=== PATIENT | male | born 1960 | race Caucasian/White ===

== ENCOUNTER → 2018-09-30 15:07 | Outpatient (CLI) | payer BC, SELFPAY ==
[2018-09-30 15:41] LABS: RET-HE 38.1 pg (30-35); Reticulocyte Count 1.73 % (0.5-1.5)
[2018-09-30 16:28] LABS: Anion Gap 7 (5-15); BUN 12 mg/dL (7-18); BUN/Creat Ratio 13.7 RATIO (10-20); Calcium,Total 9.2 mg/dL (8.5-10.1); Chloride 98 mmol/L (98-107); Creatinine, Serum 0.88 mg/dL (0.70-1.30); EST Glomerular Filtration Rate 95 mL/min (>60); Est Glom Filt Rate - Afr Amer 115 mL/min (>60); Ferritin 64 ng/mL (26-388); Glucose 138 mg/dL (74-106); Iron 113 ug/dL (65-175); Iron Binding Capacity,Total 340 ug/dL (250-450); Potassium 4.6 mmol/L (3.5-5.1); Sodium Level 133 mmol/L (136-145)
[2018-09-30 16:44] LABS: Vitamin B12 478 pg/mL (211-911)
== END ==
PROVIDERS: Family Provider Internal Medicine; PCP Internal Medicine; Referring Provider Internal Medicine; Visit Provider Internal Medicine
DX: D64.9 Anemia, unspecified (principal); E87.1 Hypo-osmolality and hyponatremia
CPT/HCPCS: 36415; 80048; 82607; 82728; 82746; 83540; 83550; 85045

== ENCOUNTER → 2019-09-04 12:05 | Outpatient (CLI) | payer BC, SELFPAY ==
--- NOTE | 2019-09-04 12:09 | EKG12_ITS ---
Test Reason : PREOP Blood Pressure : / mmHG Vent. Rate : 067 BPM Atrial Rate : 067 BPM P-R Int : 174 ms QRS Dur : 088 ms QT Int : 390 ms P-R-T Axes : 069 032 052 degrees QTc Int : 412 ms Normal sinus rhythm Normal ECG Confirmed by KATINA PERRY, ROSALBA ([id number]), editor book ADELA BOLDEN ([id number]) on 09/07/2019 2:09:15 PM Referred By: Verna Cadena Confirmed By:VANESA AMBRIZ MD
[2019-09-04 12:47] LABS: Hematocrit 37.3 % (40-54); Hemoglobin 12.8 g/dL (13.0-16.5); Mean Corp Hgb Conc 34.3 g/dL (32-36); Mean Corpuscular Hgb 32.2 pg (27.0-32.0); Mean Corpuscular Volume 93.7 fL (80-94); Mean Platelet Vol. 8.7 fl (6.2-12.0); Platelet Count 265 K/mm3 (150-450); RBC Distribution Width CV 12.8 % (11.6-14.6); Red Blood Count 3.98 M/mm3 (4.6-6.2); White Blood Count 5.2 K/mm3 (4.4-11.0)
[2019-09-04 13:18] LABS: Anion Gap 5 (5-15); BUN 9 mg/dL (7-18); BUN/Creat Ratio 11.9 RATIO (10-20); Calcium,Total 8.9 mg/dL (8.5-10.1); Chloride 101 mmol/L (98-107); Creatinine, Serum 0.76 mg/dL (0.70-1.30); EST Glomerular Filtration Rate 112 mL/min (>60); Est Glom Filt Rate - Afr Amer 136 mL/min (>60); Glucose 83 mg/dL (74-106); Potassium 3.8 mmol/L (3.5-5.1); Sodium Level 133 mmol/L (136-145)
== END ==
PROVIDERS: PCP Internal Medicine; Referring Provider Physician Assistant; Visit Provider Physician Assistant
DX: Z01.818 Encounter for other preprocedural examination (principal); Z01.810 Encounter for preprocedural cardiovascular examination; I10 Essential (primary) hypertension
CPT/HCPCS: 36415; 80048; 85027; 93005

== ENCOUNTER → 2019-09-30 11:23 | Outpatient (CLI) | payer BC, SELFPAY ==
[2019-09-30 13:11] LABS: Anion Gap 6 (5-15); BUN 9 mg/dL (7-18); BUN/Creat Ratio 12.3 RATIO (10-20); Calcium,Total 8.8 mg/dL (8.5-10.1); Chloride 102 mmol/L (98-107); Creatinine, Serum 0.73 mg/dL (0.70-1.30); EST Glomerular Filtration Rate 117 mL/min (>60); Est Glom Filt Rate - Afr Amer 141 mL/min (>60); Glucose 85 mg/dL (74-106); Sodium Level 134 mmol/L (136-145)
== END ==
PROVIDERS: PCP Internal Medicine; Referring Provider Physician Assistant; Visit Provider Physician Assistant
DX: I10 Essential (primary) hypertension (principal)
CPT/HCPCS: 36415; 80048

== ENCOUNTER → 2023-01-29 | Outpatient (CLI) | payer BC, SELFPAY ==
[2023-01-29 16:42] LABS: Absolute Lymphocyte Count 1.42 X10^3/uL (0.83-4.51); Absolute Neutrophil Count 3.1 X10^3/uL (2.0-7.7); Basophil# 0.02 X10^3/uL; Basophil% 0.4 % (0-1); Eosinophil# 0.14 X10^3/uL; Eosinophils% 2.6 % (0-5); Hematocrit 34.9 % (40-54); Hemoglobin 12.3 g/dL (13.0-16.5); Lymphocyte # 1.42 X10^3/ul (0.83-4.51); Lymphocyte % 26.3 % (19-41); Mean Corp Hgb Conc 35.2 g/dL (32-36); Mean Corpuscular Hgb 32.6 pg (27.0-32.0); Mean Corpuscular Volume 92.6 fL (80-94); Mean Platelet Vol. 8.7 fl (6.2-12.0); Monocyte# 0.72 X10^3/uL; Monocyte% 13.4 % (0-10); NRBC Flagged by Analyzer 0 % (0-5); Neutrophil # 3.08 X10^3/uL (2.7-7.7); Neutrophil % 57.1 % (47-70); Platelet Count 306 K/mm3 (150-450); RBC Distribution Width CV 12.1 % (11.6-14.6); RBC Distribution Width SD 41.5 fl (35.1-43.9); Red Blood Count 3.77 M/mm3 (4.6-6.2); White Blood Count 5.4 K/mm3 (4.4-11.0)
[2023-01-29 17:15] LABS: Vitamin B12 722 pg/mL (211-911); Vitamin D,25 Hydroxy 45.5 ng/mL
[2023-01-29 17:23] LABS: Hemoglobin A1c 5.2 % (3.8-5.6)
[2023-01-29 17:57] LABS: ALB/GLOB Ratio 1.4 RATIO (0.9-2.4); AST(SGOT) 14 U/L (15-37); Alanine Aminotransfer ALT/SGPT 22 U/L (16-61); Albumin, Serum 4.6 g/dL (3.2-5.0); Alkaline Phosphatase 91 U/L (45-117); Anion Gap 8 (5-15); BUN 15 mg/dL (7-18); BUN/Creat Ratio 17.8 RATIO (10-20); Calcium,Total 9.6 mg/dL (8.5-10.1); Chloride 92 mmol/L (98-107); Cholesterol 207 mg/dL (200); Creatinine, Serum 0.84 mg/dL (0.70-1.30); EST Glomerular Filtration Rate 98 mL/min (>60); Est Glom Filt Rate - Afr Amer 119 mL/min (>60); Globulin 3.2 g/dL (2.2-4.2); Glucose 106 mg/dL (74-106); High Density Lipoprotein 73 mg/dL; Iron 168 ug/dL (65-175); Iron Binding Capacity,Total 369 ug/dL (250-450); PERCENT IRON SATURATION 45.5 % (15.0-55.0); PSA,Total - Annual Screen 3.49 ng/mL (0.00-4.00); Potassium 4.1 mmol/L (3.5-5.1); Protein, Total 7.8 g/dL (6.4-8.2); Sodium Level 126 mmol/L (136-145); Thyroid Stim Hormone (TSH) 3.14 uIU/mL (0.358-3.74); Triglycerides 107 mg/dL; Very Low Density Lipoprotein 21 mg/dL (5-40)
== END | disposition home or self-care (01) ==
LOC: LAB 15:59
PROVIDERS: PCP Internal Medicine; Referring Provider Internal Medicine; Visit Provider Internal Medicine
DX: D64.9 Anemia, unspecified (principal); E78.00 Pure hypercholesterolemia, unspecified; R73.9 Hyperglycemia, unspecified; Z12.5 Encounter for screening for malignant neoplasm of prostate
CPT/HCPCS: 36415; 80053; 80061; 82306; 82607; 82746; 83036; 83540; 83550; 84153; 84443; 85025; G0103

== ENCOUNTER → 2023-03-19 | Outpatient (CLI) | payer BC, SELFPAY ==
--- NOTE | 2023-03-19 | BON_PTH ---
PATIENT: DEIDRA TRAN LOC: [facility] U#:[id number] AGE/SX: 63/M ROOM: RE03/19/[address]: Dr. Deidra Garcia DO : 1960 BED: DIS: 03/19/2023 SPEC #: [id number] RECD: 03/20/23 08:20 STATUS: KAI ENRICO #: [id number] [place]: 03/19/23 00:[address]: Deidra Garcia DEPT: SURGICAL PATHOLOGY RECD BY: Keyonna Stephens ENTERED: 03/20/23 08:22 SP TYPE: Bone OTHR DR: Dr. Don Pascual MD [facility] Tissues: A - Vertebra, NOS B - Vertebra, NOS Procedures: Decalcification bone/plaque Surgery Specimen Level V HEADER OPERATION: T5, T8 kyphoplasty PRE-OP DIAGNOSIS: Wedge compression fracture of T5-T6 and T7-T8 vertebra TISSUE SUBMITTED: A - T8 vertebral body bone, B - T5 vertebral body bone MICROSCOPIC DIAGNOSIS A. T8 vertebral body, bone biopsy: Reparative and reactive change. No evidence of malignancy. Trilineage hematopoiesis is present. B. T5 vertebral body, bone biopsy: Reparative and reactive change. No evidence of malignancy. Trilineage hematopoiesis is present. AM:kenan 03/21/2023 MICROSCOPIC DESCRIPTION Slides are reviewed. GROSS DESCRIPTION A - Received in fixative is one container labeled with the patient's name and designated vertebral body T8. The specimen consists of a cylindrical fragment of zimmerman bone measuring 1.0 cm in length and 0.1 cm in average diameter. The specimen is totally submitted in one cassette after decalcification. B - Received in fixative is one container labeled with the patient's name and designated vertebral body T5. The specimen consists of a cylindrical fragment of zimmerman bone measuring 1.0 cm in length and 0.1 cm in average diameter. The specimen is totally submitted in one cassette after decalcification. / AM:kenan 03/20/2023 TC:5 CPT: 55042 x2, 47623 x2
== END | disposition home or self-care (01) ==
LOC: LABSPEC 15:51
PROVIDERS: PCP Internal Medicine; Referring Provider Orthopaedic Surgery; Visit Provider Orthopaedic Surgery
DX: S22.050A Wedge compression fracture of T5-T6 vertebra, initial encounter for closed fracture (principal); S22.060A Wedge compression fracture of T7-T8 vertebra, initial encounter for closed fracture; X58.XXXA Exposure to other specified factors, initial encounter
CPT/HCPCS: 88305; 88307; 88311

== ENCOUNTER → 2024-11-19 | Outpatient (CLI) | payer BC, SELFPAY ==
--- NOTE | 2024-11-19 14:53 | MRI_ITS ---
PROCEDURE: PELVIS W/WO CONTRAST, 11/19/2024 REASON FOR EXAM: ELEVATED PROSTATE SPECIFIC ANTIGEN TECHNIQUE: Multisequence multiplanar MRI pelvis was performed with and without IV contrast. IV Contrast: 17 mL Clariscan COMPARISON: None FINDINGS: Variable overall mild/moderate motion limitation. Notably, axial T2 sequence which is a hart sequence is moderately motion degraded. The effect of motion artifact is magnified by the small size of the gland. Additional mild artifact on diffusion related to bowel gas, involving the posterior peripheral zone. Prostate size: 4.4 x 2.9 x 4.0 cm, estimated volume 26.5 mL. Transition zone: No clear high-risk lesion identified allowing for limitations. PI-RADS 2 findings. 1.6 cm likely extruded transition zone nodule at the level of the prostatic base protruding into the base of the seminal vesicle and bladder neck. Peripheral Zone: Background changes of likely prostatitis (PI-RADS 2). Extremely ill-defined signal extending from the RIGHT posterior peripheral zone base into the RIGHT posterolateral zone midgland and RIGHT anterior peripheral zone at the level of the apex on dynamic postcontrast imaging and diffusion, extremely difficult to delineate on motion limited small zehhp-ba-pyab T2, measuring up to roughly 1.3 cm on a single axial image (for example, axial T2 series 12 images 16, 18, and 20, however better seen on dynamic postcontrast series 13.7, images 9-15). Findings technically meet criteria for PI-RADS 4. Extracapsular extension:No definite extracapsular extension allowing for limitations, however, there is capsular abutment greater than 1 cm which increases the risk of occult early/microscopic extracapsular extension. Note that this includes the region of the RIGHT neurovascular bundle, which appears grossly unremarkable allowing for limitations. Neurovascular bundles: As above. Seminal vesicles: Extruded transition zone nodule on the LEFT as above.. Bladder: Underdistended and suboptimally evaluated. Trabeculated appearance with mild wall thickening suggesting chronic bladder outlet obstruction.. Lymph nodes: Distal LEFT external iliac node, 11 mm short axis. Distal RIGHT external iliac node, 9 mm short axis.. Bones: Heterogeneous marrow signal without destructive or convincing discrete suspicious bony lesions identified. Other: None. MRI/Pelvis W/WO Contrast IMPRESSION: 1. Somewhat limited exam as above. 2. Challenging delineation of an ill-defined lesion in the RIGHT peripheral zon e extending from the posterior base inferiorly and laterally/anteriorly into the anterior apex as described, up to 1.3 cm in great est axial dimension but likely greater in craniocaudal extent. Findings are difficult to categorize but technically felt most consistent with PI-RADS 4. 3. No definite extracapsular extension allowing for limitations, however, there is capsular abutment greater than 1 cm which increases the risk of occult early/microscopic extracapsular extension. Note th at this includes the region of the RIGHT neurovascular bundle, which appears grossly unremarkable allowing for limitatio ns. 4. Mild distal CDHW-yaznfec-pxpb-RIGHT external iliac chain lymphadenopathy by PI-RADS criteria, nonspecific in the absence of known prostatic malignancy. [facility], this would warrant close follow-up. 5. Additional description as above. Reading Location: [id number]
== END | disposition home or self-care (01) ==
LOC: OPMRI 14:49
PROVIDERS: PCP Internal Medicine; Referring Provider Urology; Visit Provider Urology
DX: R97.20 Elevated prostate specific antigen [PSA] (principal)
CPT/HCPCS: 72197; A9575; A4216

== ENCOUNTER → 2024-12-17 | Outpatient (CLI) | payer BC, SELFPAY ==
--- NOTE | 2024-12-17 08:00 | PROSBIL_PTH ---
PATIENT: DEIDRA TRAN LOC: [facility] U#:[id number] AGE/SX: 64/M ROOM: RE12/17/[address]: Dr. Gilles Johnston MD : 1960 BED: DIS: 12/17/2024 SPEC #: [id number] RECD: 12/17/24 16:26 STATUS: KAI REDaisy #: [id number] [place]: 12/17/24 08:[address]: Gilles Johnston DEPT: SURGICAL PATHOLOGY RECD BY: Russ Garcia ENTERED: 12/18/24 13:16 SP TYPE: PROST BX OT DR: Dr. Don Pascual MD Tissues: A - PROSTATE RIGHT B - PROSTATE RIGHT C - PROSTATE RIGHT D - PROSTATE LEFT E - PROSTATE LEFT F - PROSTATE LEFT Procedures: PROSTATE BX Immunohistochemical Stains HEADER OPERATION: Prostate biopsy PRE-OP DIAGNOSIS: Elevated PSA TISSUE SUBMITTED: A - Right apex, B - Right mid, C - Right base, D - Left apex, E - Left mid, F - Left base MICROSCOPIC DIAGNOSIS A. Prostate, right apex, core biopsy: - Focal adenocarcinoma [place] 3+3=6, one of two cores, < 2% of the specimen. - PIN4 IHC supports the diagnosis. B. Prostate, right mid, core biopsy: - Adenocarcinoma [place] 3+3=6, one of three cores, 25% of the specimen. C. Prostate, right base, core biopsy: - High grade PIN. - PIN4 IHC supports the diagnosis. D. Prostate, left apex, core biopsy: - High grade PIN. - PIN4 IHC supports the diagnosis. E. Prostate, left mid, core biopsy: - Focal adenocarcinoma [place] 3+3=6, one of one core, < 5% of the specimen. - PIN4 IHC supports the diagnosis. F. Prostate, left base, core biopsy: - Benign prostate tissue. MICROSCOPIC DESCRIPTION Slides are reviewed. All matched controls reacted appropriately. These tests were developed and their performance characteristics determined by [facility]. They may not have been cleared or approved by the [place]. Food and Drug Administration. The FDA has determined that such clearance or approval is not necessary.? The above immunohistochemical?markers and/or special stains have been reviewed by the Pathologist. GROSS DESCRIPTION Received in 6 formalin containers labeled with the patient's name and date of . Designated as: A. RA are 2 zimmerman tissue cores, 1.6-1.9 cm in length by 0.1 cm in diameter. Entirely submitted in 1 cassette. B. RM are 3 fragmented zimmerman tissue cores, 0.9-1.4 cm in length by 0.1 cm in diameter. Entirely submitted in 1 cassette. C. RB are 2 fragmented zimmerman tissue cores, 1.3 cm in length by 0.1 cm in diameter each. Entirely submitted in 1 cassette. D. LA is a zimmerman tissue core, 1.5 cm in length by 0.1 cm in diameter. Entirely submitted in 1 cassette. E. LM is a zimmerman tissue core, 1.7 cm in length by 0.1 cm in diameter. Entirely submitted in 1 cassette. F. LB is a zimmerman tissue core, 2.0 cm in length by 0.1 cm in diameter. Entirely submitted in 1 cassette. CO 12/18/2024 CPT:27900h3,45704q2
== END | disposition home or self-care (01) ==
LOC: LABSPEC 16:13
PROVIDERS: PCP Internal Medicine; Referring Provider Urology; Visit Provider Urology
DX: R97.20 Elevated prostate specific antigen [PSA] (principal)
CPT/HCPCS: 88305; 88342; G0416

== ENCOUNTER → 2025-04-02 | Outpatient (CLI) | payer BC, SELFPAY ==
--- NOTE | 2025-04-02 07:03 | MRI_ITS ---
PROCEDURE: SPINE THORACIC (ROUTINE) 04/02/2025 REASON FOR EXAM: PAIN, HX OF KYPHOPLASTY TECHNIQUE: Procedure Code: MRISPT Modality: MR Procedure: SPINE THORACIC (ROUTINE) Multiplanar and multisequence images were obtained. CONTRAST: None. COMPARISON: MRI thoracic spine 10/15/2023 FINDINGS: The normal thoracic kyphosis is maintained. Redemonstration of compression fracture deformities of T5 and T8 vertebral bodies where there are also kyphoplasties. The thoracic vertebral bodies are normal in alignment. The thoracic bone marrow signal is within normal limits. Small Schmorl's node at the superior endplate of the T1 vertebral body with associated bone marrow edema. There is no evidence of thoracic spinal cord signal abnormality. No high-grade spinal canal or neural foraminal stenosis in the thoracic spine. T7-T8: Central disc protrusion indents the ventral thecal sac. T10-T11: Disc bulge. T11-T12: Disc bulge. MRI/Spine Thoracic (Routine) IMPRESSION: Small acute Schmorl's node at the superior endplate of T1 vertebral body. [employer] yamilka compression fractures of T5 and T8 vertebral bodies where there are also kyphoplasties. Reading Location: [id number]
--- OUTSIDE RECORDS SUMMARY | 2025-04-02 07:03 | XMS RPT_ITS | CCD ---
Author Organization [facility] Care Team Providers Care Medical Billing Associate Name Role Phone Omran, Yasser Unavailable Unavailable Omran, Yasser Unavailable Unavailable Omran, Yasser Unavailable Unavailable LATOUF, BUTROS Primary Care Unavailable MANTELBrooks DRUM TESTERBIJAL Cintron Attending Unavailab janis MANTELL DRUM TESTER, BIJAL Harvey Consulting Unavailab janis CRAWLEY DRUM TESTER, BIJAL Harvey Admitting Unavailab janis PASCUAL BUTROS Consulting Unavailable LATOUGERARD OnealROS Referring Unavailable LATOUF BUTROS Primary Care Unavailable LATOUFGERARDROS Primary Care Unavailable DIONI PASCUAL MD Attending Unavailable LATOUDIONI Oneal MD Consulting Unavailable LATOUDIONI Oneal MD Primary Care Unavailable LATOUDIONI Oneal MD Admitting Unavailable PROVIDER, UNKNOWN Consulting Unavailable PROVIDER, UNKNOWN Consulting Unavailable PROVIDER, UNKNOWN Consulting Unavailable DIONI PASCUAL MD Attending Unavailable LATOUDIONI Oneal MD Consulting Unavailable LATOUDIONI Oneal MD Primary Care Unavailable LATOUDIONI Oneal MD Admitting Unavailable PROVIDER, UNKNOWN Consulting Unavailable PROVIDER, UNKNOWN Consulting Unavailable PROVIDER, UNKNOWN Consulting Unavailable DIONI PASCUAL MD Attending Unavailable LATOUDIONI Oneal MD Consulting Unavailable LATOUDIONI Oneal MD Primary Care Unavailable LATOUDIONI Oneal MD Admitting Unavailable PROVIDER, UNKNOWN Consulting Unavailable PROVIDER, UNKNOWN Consulting Unavailable PROVIDER, UNKNOWN Consulting Unavailable LATOUDIONI Oneal MD Admitting Unavailable LATOUDIONI Oneal MD Attending Unavailable LATOUDIONI Oneal MD Consulting Unavailable LATOUDIONI Oneal MD Primary Care Unavailable PROVIDER, UNKNOWN Consulting Unavailable PROVIDER, UNKNOWN Consulting Unavailable PROVIDER, UNKNOWN Consulting Unavailable LADARIUSOUDIONI Oneal MD Primary Care Unavailable LATOUDIONI Oneal MD Attending Unavailable LATOUDIONI Oneal MD Consulting Unavailable LATOUDIONI Oneal MD Admitting Unavailable PROVIDER, UNKNOWN Consulting Unavailable PROVIDER, UNKNOWN Consulting Unavailable PROVIDER, UNKNOWN Consulting Unavailable LATOUDIONI Oneal MD Primary Care Unavailable LATOUF, DIONI PERRY Attending Unavailable LATOUF, DIONI PERRY Consulting Unavailable LATOUF, DIONI PERRY Admitting Unavailable PROVIDER, UNKNOWN Consulting Unavailable PROVIDER, UNKNOWN Consulting Unavailable PROVIDER, UNKNOWN Consulting Unavailable LATOUF, DIONI PERRY Primary Care Unavailable LATOUF, DIONI PERRY Admitting Unavailable LATOUF, DIONI PERRY Attending Unavailable LATOUF, DIONI PERRY Consulting Unavailable PROVIDER, UNKNOWN Consulting Unavailable PROVIDER, UNKNOWN Consulting Unavailable PROVIDER, UNKNOWN Consulting Unavailable MOY ASTORGA MD Attending Unavailabl e MOY ASTORGA MD Primary Care Unavailabl e MOY ASTORGA MD Admitting Unavailabl e LATOUF, DIONI PERRY Consulting Unavailable PROVIDER, UNKNOWN Consulting Unavailable PROVIDER, UNKNOWN Consulting Unavailable PROVIDER, UNKNOWN Consulting Unavailable LATOUF, DIONI PERRY Primary Care Unavailable LATOUF, DIONI PERRY Attending Unavailable LATOUF, DIONI PERRY Consulting Unavailable LATOUF, DIONI PERRY Admitting Unavailable PROVIDER, UNKNOWN Consulting Unavailable PROVIDER, UNKNOWN Consulting Unavailable PROVIDER, UNKNOWN Consulting Unavailable Latouf , Dr. Ochoa Primary Care Provider [phone] Preston PERRY, Dr. Gilles Zelaya Attending Provider Preston PERRY, Dr. Gilles Zelaay Referring Provider Latouf, Butros Primary Care Unavailable Latouf, Butros Referring Unavailable Page Quinn Attending Unavailable PrestonGilles Referring Unavailable Latouf, Butros Primary Care Unavailable PrestonGilles ellis Attending Unavailable Preston, Gilles Zelaya Referring Unavailable Latouf, Butros Primary Care Unavailable Preston, Gilles Zelaya Attending Unavailable Latouf, Butros Primary Care Unavailable Jean-PierreOzzy villaseñorril Attending Unavailable Allergies Allergy Classification Reported Allergen(s) Allergy Type Date of Onset Reaction(s) Facility Unclassified (1 source) ALLERGIES NOT ON FILE; Translations: [ALLERGIES NOT ON FILE] Propensity to adverse reactions (disorder) [facility] Problems Active Problems Problem Classification Problem Date Documented Date Episodic/Chronic Cardiac dysrhythmias (3 sources) Unspecified atrial fibrillation; Translations: [Unspecified atrial fibrillation (Multi)] Onset: 10-12-2023 Chronic Coronary atherosclerosis and other heart disease (1 source) Atherosclerotic heart disease of [place] coronary artery with unspecified angina pectoris; Translations: [ASHD NATIV CA W/UNS ANGINA PECTORIS] Onset: 01-19-2022 Chronic Deficiency and other anemia (3 sources) Anemia, unspecified; Translations: [Anemia, unspecified] Onset: 10-12-2023 Episodic Disorders of lipid metabolism (7 sources) Hyperlipidemia, unspecified; Translations: [Pure hypercholesterolemia, unspecified] Onset: 01-19-2022 Chronic Essential hypertension (2 sources) Essential (primary) hypertension; Translations: [ESSENTIAL PRIMARY HYPERTENSION] Onset: 01-19-2022 Chronic Nonspecific chest pain (3 sources) Chest pain, unspecified; Translations: [CHEST PAIN UNSPECIFIED] Onset: 01-18-2022 Episodic Other liver diseases (1 source) Abnormal levels of other serum enzymes; Translations: [Abnormal levels of other serum enzymes] Onset: 10-19-2024 Episodic Other screening for suspected conditions (not mental disorders or infectious disease) (6 sources) Elevated prostate specific antigen [PSA]; Translations: [Elevated prostate specific antigen (PSA)] Onset: 07-09-2023 Episodic Spondylosis; intervertebral disc disorders; other back problems (2 sources) Cervicalgia; Translations: [Pain in thoracic spine] Onset: 03-15-2025 Episodic Past or Other Problems Problem Classification Problem Date Documented Da te Episodic/Chronic Diabetes mellitus without complication (1 source) Hyperglycemia, unspecified; Translations: [Hyperglycemia, unspecified] Onset: 05-30-2024 Episodic Fluid and electrolyte disorders (3 sources) Hypo-osmolality and hyponatremia; Translations: [Hypo-osmolality and hyponatremia] Onset: 07-09-2023 Episodic Results Test Name Value Interpretation Reference Range Facility Orthopedic Visit Reporton Orthopedic Visit Report [facility] [address] [place] [address] OFFICE VISIT Date of Service: 03/15/25 MR#: [id number] Acct: [id number] Name: CHELSEAMARKO CLARKE Rep #: [id number] : 1960 Provider: GREGORY Gandhi Age/Sex: 65/M Location: [facility]MARY LOU Status: Signed Intake Vital Signs 03/15/25 15:02 Height 5 ft 10 in Weight: 189 lb 4 oz BMI 27.1 Intake Visit Reasons: CERVICAL SPINE Chief Complaint: Cervical spine pain Accompanied by: Self Is patient in pain?: Yes Pain scale (1-10): 5 Allergies No Known Allergies Allergy (Unverified 03/15/25 15:05) Medications ???Medication ???Instructions ???Recorded ???Confirmed ???Type apixaban 5 mg tablet (Eliquis) 5 mg PO BID 03/15/25 03/15/25 Hist ory ascorbate calcium (vitamin C) 500 500 mg PO QDAY 03/15/25 03/15/25 History mg tablet carvedilol 25 mg tablet (Coreg) 25 mg PO BID 03/15/25 03/15/25 His tory eplerenone 25 mg tablet (Inspra) 25 mg PO Q OTHER DAY 03/15/2503/06 History ezetimibe 10 mg tablet (Zetia) 10 mg PO QDAY 03/15/25 03/15/25 Hi story glucosamine 750 bi-vrvrkcyteqf-cqi 1 tab PO BID 03/15/25 03/15/25 H istory no1 644 mg-C 30 mg-rekha 1 mg tablet (Osteo Bi-Flex Triple Strength) qljlfhzj-ohb-qyvyc acid 0.4 1 tab PO QDAY 03/15/25 03/15/25 Hi story mg-lycopene 300 mcg-lutein 250 mcg tablet (Centrum Silver) rosuvastatin 10 mg tablet (Crestor) 10 mg PO QDAY 03/15/25 03/15/25 History Have you fallen in the past year?: No PFSH Medical History Femur fracture Prostate cancer Afib High blood pressure High cholesterol Surgical History H/O kyphoplasty History of hernia surgery Social History Smoking Status: Former smoker alcohol intake: current alcohol intake frequency: holidays/special occasions only HPI CERVICAL SPINE Details: This documentation accurately reflects the service provided and the decisions made by me, GREGORY Gandhi 03/15/25 7475. Part of today???s visit was documented by Lauren Brown MA, acting as scribe. MARKO TRAN is a 65 year old M here today for cervical/thoracic spine. Patient states that his pain is a 5 today. He is having pain in the back between his shoulder blades. The pain is constant, and sharp pain. Patient states that this has been going on for about 2-3 months. He denies any pain that goes down his arms. He denies any neck pain. He denies any pain in his lower back or pain that extends down his legs. The pain has been gradually worsening with time. Patient saw Dr. Garcia about a year ago. Dr. Garcia stated that he had a compression fracture. Patient did have a kyphoplasty by Dr. Garcia a year ago. Patient states that there is nothing that makes the pain worse. Patient hasn't had any injections in his neck. He hasn't tried any physical therapy. Patient doesn't have any diabetes, but he does have blood thinners. Eliquis for A Fib. Patient is a former smoker. Patient doesn't have any balance problems. He hasn't had any problems dropping items out of his hands. sitting and driving doesn't seem to make it worse. Takes Tylenol with some mild benefit. Ortho Exam General General: Yes no acute distress Neurologic: Yes alert and Yes oriented x3 Psychologic: Yes reasonable and appropriate Spine SPINE TESTING CERVICAL THORACIC LUMBAR Musculoskeletal Strength 0=absent - 5=normal Details: Neurological exam of the upper an lower extremities shows 5X5 power. Normal sensation across all dermatomes. No hyperreflexia. Mild midline tenderness between shoulder blades of the thoracic spine. Coding Level of Care Code Off vis,new,level 4 Diagnoses Chronic midline thoracic back pain M54.6; G89.29 Chronicity: chronic Back pain laterality: midline H/O kyphoplasty Z98.890 Degenerative disc disease, cervical M50.30 Assessment and Plan Assessment and Plan (1) Thoracic back pain: Status: Acute Qualifiers: Chronicity: chronic Back pain laterality: midline Qualified Code(s): M54.6 - Pain in thoracic spine; G89.29 - Other chronic pain (2) H/O kyphoplasty: Status: Acute (3) Degenerative disc disease, cervical: Orders: Orders Cerv Spine 4 or 5 Views 03/15/25 M54.2 - Cervicalgia Thoracic Spine 2 Views 03/15/25 M54.6 - Pain in thoracic spine Spine Thoracic (Routine) Today M54.6 - Pain in thoracic spine, Z98.890 - Other specified postprocedural states Plan Obtained and reviewed cervical and thoracic xrays today with the patient. Independent interpretation of the xrays was performed. Cervical x-rays show multilevel disc height loss, a mild retrolisthesis of C3 on C (more content not included)... Normal [facility] Immunohistochemical Stainson 12-17-2024 Immunohistochemical Stains Patient Age/Sex Location Account Attending Physician MARKO TRAN 64/M LABSPEC [id number] Dr. Gilles Johnston MD Specimen: [id number] Received: 12/17/24 Status: KAI Sofia Num: [id number] Spec Type: PROST BX Subm Dr: Dr. Gilles Johnston MD HEADER OPERATION: Prostate biopsy PRE-OP DIAGNOSIS: Elevated PSA TISSUE SUBMITTED: A - Right apex, B - Right mid, C - Right base, D - Left apex, E - Left mid, F - Left base MICROSCOPIC DIAGNOSIS A. Prostate, right apex, core biopsy: - Focal adenocarcinoma [place] 3+3=6, one of two cores, < 2% of the specimen. - PIN4 IHC supports the diagnosis. B. Prostate, right mid, core biopsy: - Adenocarcinoma [place] 3+3=6, one of three cores, 25% of the specimen. C. Prostate, right base, core biopsy: - High grade PIN. - PIN4 IHC supports the diagnosis. D. Prostate, left apex, core biopsy: - High grade PIN. - PIN4 IHC supports the diagnosis. E. Prostate, left mid, core biopsy: - Focal adenocarcinoma [place] 3+3=6, one of one core, < 5% of the specimen. - PIN4 IHC supports the diagnosis. F. Prostate, left base, core biopsy: - Benign prostate tissue. MICROSCOPIC DESCRIPTION Slides are reviewed. All matched controls reacted appropriately. These tests were developed and their performance characteristics determined by [facility]. They may not have been cleared or approved by the U.S. Food and Drug Administration. The FDA has determined that such clearance or approval is not necessary.??? The above immunohistochemical???jeremias ers and/or special stains have been reviewed by the Pathologist. GROSS DESCRIPTION Received in 6 formalin containers labeled with the patient's name and date of . Designated as: A. RA are 2 zimmerman tissue cores, 1.6-1.9 cm in length by 0.1 cm in diameter. Entirely submitted in 1 cassette. B. RM are 3 fragmented zimmerman tissue cores, 0.9-1.4 cm in length by 0.1 cm in diameter. Entirely submitted in 1 cassette. C. RB are 2 fragmented zimmerman tissue cores, 1.3 cm in length by 0.1 cm in diameter each. Patient Age/Sex Location Account Attending Physician MARKO TRAN 64/M LABSPEC [id number] Dr. Gilles Johnston MD Entirely submitted in 1 cassette. D. LA is a zimmerman tissue core, 1.5 cm in length by 0.1 cm in diameter. Entirely submitted in 1 cassette. E. LM is a zimmerman tissue core, 1.7 cm in length by 0.1 cm in diameter. Entirely submitted in 1 cassette. F. LB is a zimmerman tissue core, 2.0 cm in length by 0.1 cm in diameter. Entirely submitted in 1 cassette. [place] 12/18/2024 [facility]:[id number] Patient Age/Sex Location Account Attending Physician MARKO TRAN 64/M LABSPEC [id number] Dr. Gilles Johnston MD Signed (signature on file) Dr. Alejandra Paulino MD 12/25/24 1719 Normal [facility] Comment on above: Performed By: #### P WILLIE #### [facility] [address] [place], [place], [id number] Magnetic resonance imaging r eportOrdered By: Jeremias Fox on 11-24-[address] [facility] Imaging Services [address] [place], [place] [id number] Pelvis W/WO Contrast MR#: [id number] Acct: [id number] Name: MARKO TRAN Rep #: [id number] : 1960 M 64 From: Annika Fox MD PCP: Dr. Dioni Pascual MD Status: REG CLI Study:Pelvis W/WO Contrast Date of Exam: 11/19/24 Exam# [id number] Ordering Dr: Helder Johnston MD PROCEDURE: PELVIS W/WO CONTRAST, 11/19/2024 REASON FOR EXAM: ELEVATED PROSTATE SPECIFIC ANTIGEN TECHNIQUE: Multisequence multiplanar MRI pelvis was performed with and without IV contrast. IV Contrast: 17 mL Clariscan COMPARISON: None FINDINGS: Variable overall mild/moderate motion limitation. Notably, axial T2 sequence which is a hart sequence is moderately motion degraded. The effect of motion artifact is magnified by the small size of the gland. Additional mild artifact on diffusion related to bowel gas, involving the posterior peripheral zone. Prostate size: 4.4 x 2.9 x 4.0 cm, estimated volume 26.5 mL. Transition zone: No clear high-risk lesion identified allowing for limitations. PI-RADS 2 findings. 1.6 cm likely extruded transition zone nodule at the level of the prostatic base protruding into the base of the seminal vesicle and bladder neck. Peripheral Zone: Background changes of likely prostatitis (PI-RADS 2). Extremely ill-defined signal extending from the RIGHT posterior peripheral zone base into the RIGHT posterolateral zone midgland and RIGHT anterior peripheral zone at the level of the apex on dynamic postcontrast imaging and diffusion, extremely difficult to delineate on motion limited small ugokr-pa-vkit T2, measuring up to roughly 1.3 cm on a single axial image (for example, axial T2 series 12 images 16, 18, and 20, however better seen on dynamic postcontrast series 13.7, images 9-15). Findings technically meet criteria for PI-RADS 4. Extracapsular extension:No definite extracapsular extension allowing for limitations, however, there is capsular abutment greater than 1 cm which increases the risk of occult early/microscopic extracapsular extension. Note that this includes the region of the RIGHT neurovascular bundle, which appears grossly unremarkable allowing for limitations. Neurovascular bundles: As above. Seminal vesicles: Extruded transition zone nodule on the LEFT as above.. Bladder: Underdistended and suboptimally evaluated. Trabeculated appearance with mild wall thickening suggesting chronic bladder outlet obstruction.. Lymph nodes: Distal LEFT external iliac node, 11 mm short axis. Distal RIGHT external iliac node, 9 mm short axis.. Bones: Heterogeneous marrow signal without destructive or convincing discrete suspicious bony lesions identified. Other: None. MRI/Pelvis W/WO Contrast IMPRESSION: 1. Somewhat limited exam as above. 2. Challenging delineation of an ill-defined lesion in the RIGHT peripheral zoneextending from the posterior base inferiorly and laterally/anteriorly into the anterior apex as described, up to 1.3 cm in greatest axial dimension but likely greater in craniocaudal extent. Findings are difficult to categorize but technically felt most consistent with PI-RADS 4. 3. No definite extracapsular extension allowing for limitations, however, there is capsular abutment greater than 1 cm which increases the risk of occult early/microscopic extracapsular extension. Note that this includes the region of the RIGHT neurovascular bundle, which appears grossly unremarkable allowing for limitations. 4. Mild distal GPPW-mgokhgy-znha-RIGHT external iliac chain lymphadenopathy by PI-RADS criteria, nonspecific in the absence of known prostatic malignancy. If prostate cancer is found to be present, at a minimum, this would warrant close follow-up. 5. Additional description as above. Reading Location: [facility] CC: Dr. Dioni Pascual MD; Dr. Gilles Johnston MD ~ Food Sanitarian: Signed [facility] Pelvis W/WO Contraston 11-19 Pelvis W/WO Contrast [facility] Imaging Services [address] [place] [address] Pelvis W/WO Contrast MR#: [id number] Acct: [id number] Name: MARKO TRAN CLARKE Rep #: [id number] : 1960 M 64 From: Jeremias Fox MD PCP: Dr. Dioni Pascual MD Status: REG CLI Study: Pelvis W/WO Contrast Date of Exam: 11/19/24 Exam# [id number] Ordering Dr: Gilles Johnston MD PROCEDURE: PELVIS W/WO CONTRAST, 11/19/2024 REASON FOR EXAM: ELEVATED PROSTATE SPECIFIC ANTIGEN TECHNIQUE: Multisequence multiplanar MRI pelvis was performed with and without IV contrast. IV Contrast: 17 mL Clariscan COMPARISON: None FINDINGS: Variable overall mild/moderate motion limitation. Notably, axial T2 sequence which is a hart sequence is moderately motion degraded. The effect of motion artifact is magnified by the small size of the gland. Additional mild artifact on diffusion related to bowel gas, involving the posterior peripheral zone. Prostate size: 4.4 x 2.9 x 4.0 cm, estimated volume 26.5 mL. Transition zone: No clear high-risk lesion identified allowing for limitations. PI-RADS 2 findings. 1.6 cm likely extruded transition zone nodule at the level of the prostatic base protruding into the base of the seminal vesicle and bladder neck. Peripheral Zone: Background changes of likely prostatitis (PI-RADS 2). Extremely ill-defined signal extending from the RIGHT posterior peripheral zone base into the RIGHT posterolateral zone midgland and RIGHT anterior peripheral zone at the level of the apex on dynamic postcontrast imaging and diffusion, extremely difficult to delineate on motion limited small htdhv-xc-lvbh T2, measuring up to roughly 1.3 cm on a single axial image (for example, axial T2 series 12 images 16, 18, and 20, however better seen on dynamic postcontrast series 13.7, images 9-15). Findings technically meet criteria for PI- RADS 4. Extracapsular extension:No definite extracapsular extension allowing for limitations, however, there is capsular abutment greater than 1 cm which increases the risk of occult early/microscopic extracapsular extension. Note that this includes the region of the RIGHT neurovascular bundle, which appears grossly unremarkable allowing for limitations. Neurovascular bundles: As above. Seminal vesicles: Extruded transition zone nodule on the LEFT as above.. Bladder: Underdistended and suboptimally evaluated. Trabeculated appearance with mild wall thickening suggesting chronic bladder outlet obstruction.. Lymph nodes: Distal LEFT external iliac node, 11 mm short axis. Distal RIGHT external iliac node, 9 mm short axis.. Bones: Heterogeneous marrow signal without destructive or convincing discrete suspicious bony lesions identified. Other: None. MRI/Pelvis W/WO Contrast IMPRESSION: 1. Somewhat limited exam as above. 2. Challenging delineation of an ill-defined lesion in the RIGHT peripheral zone extending from the posterior base inferiorly and laterally/anteriorly into the anterior apex as described, up to 1.3 cm in greatest axial dimension but likely greater in craniocaudal extent. Findings are difficult to categorize but technically felt most consistent with PI-RADS 4. 3. No definite extracapsular extension allowing for limitations, however, there is capsular abutment greater than 1 cm which increases the risk of occult early/microscopic extracapsular extension. Note that this includes the region of the RIGHT neurovascular bundle, which appears grossly unremarkable allowing for limitations. 4. Mild distal RDKQ-wpmcudh-fqms-RIGHT external iliac chain lymphadenopathy by PI-RADS criteria, nonspecific in the absence of known prostatic malignancy. If prostate cancer is found to be present, at a minimum, this would warrant close follow-up. 5. Additional description as above. Reading Location: [id number] CC: Dr. Dioni Pascual MD; Dr. Gilles Johnston MD Food Sanitarian: Signed Normal [facility] PSA, FREE [CCL]on 10-20-2024 PSA, Diagnostic 3.39 ng/mL High <2.60 [facility] Comment on above: Result Comment: Tota l PSA test methodology used is the Electrochemiluminescence Immunoassay by [employer]. Total PSA values by differing methodologies cannot be interchanged. For an individual patient, the significance of a PSA level should be interpreted in a broad clinical context, including age, race, family history, digital rectal exam, prostate size, results of prior testing (prostate biopsy, free PSA, PCA3), and use of 5-alpha reductase inhibitors. Considering the high incidence of asymptomatic cancer in the general population that may not pose an ultimate risk to a patient, the decision to recommend urological evaluation or prostate biopsy should be individualized after consideration of all these factors. REFERENCE: Mehdi Rangel M.D., M.P.H., Iron Hernandez M.D., Ph.D., Richmond Herring M.D., Elena Reilly, M.P.H., Senait Coto Sc.D. Effect of Verification Bias on Screening for Prostate Cancer by Measurement of Prostatic Specific Antigen. N Engl J Med 2003,349:335-42. Performed By: #### [id number] #### [facility],[address] [place] [address] PSA, Percent Free 14 % Normal [facility] Comment on above: Result Comment: Tota l and free PSA test methodology used is the Electrochemiluminescence Immunoassay by [employer]. Total or free PSA values by differing methodologies cannot be interchanged. The below table lists the probability of finding prostate cancer upon needle biopsy, for men 50 years or older and total PSA concentrations from 4.0-10.0 ng/mL. Results should be interpreted within the broader clinical context. Free PSA(%) 50-59 years 60-69 years >69 years <11 49.2% 57.5% 64.5% 11-18 26.9% 33.9% 40.8% 19-25 18.3% 23.9% 29.7% >25 9.1% 12.2% 15.8% [place] [address] Farhat Hernandez III, M.D. [id number] Performed By: #### [id number] #### [facility],[address] [place] [address] Free PSA [Mass/Vol]on 2024 Free PSA/Total PSA [Mass fraction] 14 % Normal [facility] Comment on above: Order Comment: Speci men Type: BLOOD SPECIMEN Ordering Facility: [facility] Address: [address] [place] [address] Result Comment: Tota l and free PSA test methodology used is the Electrochemiluminescence Immunoassay by [employer]. Total or free PSA values by differing methodologies cannot be interchanged. The below table lists the probability of finding prostate cancer upon needle biopsy, for men 50 years or older and total PSA concentrations from 4.0-10.0 ng/mL. Results should be interpreted within the broader clinical context. Free PSA(%) 50-59 years 60-69 years >69 years <11 49.2% 57.5% 64.5% 11-18 26.9% 33.9% 40.8% 19-25 18.3% 23.9% 29.7% >25 9.1% 12.2% 15.8% Performed By: #### 1 0886-0 #### [facility] CLIA [id number] [address] [id number] [address] [place] Prostate specific Ag [Mass/Vol] 3.39 ng/mL High <2.60 [facility] Comment on above: Order Comment: Speci men Type: BLOOD SPECIMEN Ordering Facility: [facility] Address: [address] [place], [place] [address] Result Comment: Artur guy PSA test methodology used is the Electrochemiluminescence Immunoassay by [employer]. Total PSA values by differing methodologies cannot be interchanged. For an individual patient, the significance of a PSA level should be interpreted in a broad clinical context, including age, race, family history, digital rectal exam, prostate size, results of prior testing (prostate biopsy, free PSA, PCA3), and use of 5-alpha reductase inhibitors. Considering the high incidence of asymptomatic cancer in the general population that may not pose an ultimate risk to a patient, the decision to recommend urological evaluation or prostate biopsy should be individualized after consideration of all these factors. REFERENCE: Mehdi Rangel M.D., M.P.H., Iron Hernandez M.D., Ph.D., Richmond Herring M.D., Elena Reilly, M.P.H., Senait Coto Sc.D. Effect of Verification Bias on Screening for Prostate Cancer by Measurement of Prostatic Specific Antigen. N Engl J Med 2003,349:335-42. Performed By: #### 1 0886-0 #### [facility] CLIA [id number] [address] [place] [address] [place] HEPATIC FUNCTION PANELon Albumin [Mass/Vol] 3.8 g/dL Normal 3.4 - 5.0 [facility] Comment on above: Performed By: #### 2 86058 #### [address] [address] ALK PHOS 56 U/L Normal 46 - 116 [facility] Comment on above: Performed By: #### 2 32377 #### [facility],[address] [place] [address] ALT [Catalytic activity/Vol] 28 U/L Normal 16 - 63 [facility] Comment on above: Performed By: #### 2 44766 #### [facility],[address] [place] [address] AST [Catalytic activity/Vol] 29 U/L Normal 15 - 37 [facility] Comment on above: Performed By: #### 2 82743 #### [facility],[address] [place], [place] [address] Bilirubin [Mass/Vol] 0.8 mg/dL Normal 0.2 - 1.0 [facility] Comment on above: Performed By: #### 2 97445 #### [facility],[address] [place] [address] Bilirubin.direct [Mass/Vol] 0.2 mg/dL Normal 0.0 - 0.2 [facility] Comment on above: Performed By: #### 2 38312 #### [facility],[address] [place] [address] Hepatic function 2000 panel Normal [facility] Comment on above: Result Comment: HEPA TIC FUNCTION PROFILE Performed By: #### 2 27038 #### [facility],[address] [place], [place] [address] Protein [Mass/Vol] 6.6 g/dL Normal 6.4 - 8.2 [facility] Comment on above: Performed By: #### 2 03237 #### [facility],[address] [place], [place] [address] CV ECHO COMPLETE CV ECHO COMPLETE [place] [address] Patient: TRAN MARKO B. Phone#: : 1960 Age: 64 Gender: M Pt. Type: Out Account: [id number] Location: [facility] Ordering: MOY ASTORGA Exam Date: 07/03/2024/7:25 Family Phys: GERARDHIEN PASCUAL Charge Code: [id number] Physician: Daniels Order #: [id number] Dose#: PROCEDURE: ECHOCARDIOGRAM WITH DOPPLER AND COLOR FLOW HISTORY: Patient is a 64-year-old male with history of aortic root enlargement INDICATIONS: AORTIC ROOT ENLARGEMENT COMPARISON: None. TECHNIQUE: A 2-D ultrasound, color spectral Doppler and M-mode evaluation of the heart and great vessels. PATIENT MEASUREMENTS: Height (in.): 70 BSA: 2.0 Weight (lbs.): 180 BP: 150/90 Foster Care Worker: GAVIN M MODE 2D MEASUREMENTS AND CALCULATIONS: LVIDd: 5.26 cm LVIDs: 2.42 cm IVSd: 0.96 cm LVPWd: 0.89 cm LVOT diam: 2.3 cm FS: 53.92 % Ao Root diam: 4.0 cm LA diam: 3.5 cm LA Volume Index: 34.1 mL/m2 LA A4 Area: 18.57 cm2 RA A4 Area: 14.7 cm2 RVDd: 2.61 cm TAPSE: 24 mm DOPPLER MEASUREMENTS AND CALCULATIONS MITRAL MV E MAX serina: 0.72 m/s MV A MAX serina: 0.58 m/s MV E-A ratio: 1.24 MV V2 max: 0.69 m/s MV max P.91 mm[Hg] MV V2 mean: 0.43 m/s Continued Report - Page 2 of 3 Patient: MARKO TRAN Phone#: : 1960 Age: 64 Gender: M Pt. Type: Out Account: [id number] Location: [facility] Ordering: MOY ASTORGA Exam Date: 07/03/2024/7:25 Family Phys: GERARDHIEN PASCUAL Charge Code: [id number] Physician: Daniels Order #: [id number] Dose#: MV mean P.83 mm[Hg] MV V2 VTI: 16.61 cm Lat Peak E' Serina 10 cm/sec Septal Peak E' SERINA 7 cm/sec E/E' lateral 7.32 E/E' medial 11 AORTIC Ao V2 max: 1.21 m/s Ao max P.87 mm[Hg] Ao V2 mean: 0.85 m/s Ao mean P.28 mm[Hg] Ao V2 VTI: 29.69 cm LV V1 Max 0.83 m/s LV V1 Max PG 2.79 mm[Hg] LV V1 Mean PG 1.52 mm[Hg] LV V1 mean 0.57 m/s LV V1 VTI 20.72 cm PULMONIC PA V2 Max 1.21 m/s PA Max PG 5.89 mm[Hg] TRICUSPID TR Max Serina TR max PG RVSP 2D/M-MODE AND COLOR FLOW LEFT VENTRICLE: There is prominent sigmoid septum seen. Left ventricle is normal in size. Systolic ejection fraction is 60-65% with normal wall motion. There is grade 1 diastolic dysfunction seen WALL MOTION: 1 - Basal anterior: Normal. 7 - Mid anterior: Normal. 13 - Apical anterior: Normal. 2 - Basal anteroseptal: Normal. 8 - Mid anteroseptal: Normal. 14 - Apical septal: Normal. 3 - Basal inferoseptal: Normal. 9 - Mid inferoseptal: Normal. 15 - Apical inferior: Normal. 4 - Basal inferior: Normal. 10-Mid inferior: Normal. 16 - Apical lateral: Normal. 5 - Basal inferolateral: Normal. 11-Mid inferolateral: Normal. 6 - Basal anterolateral: Normal. 12-Mid anterolateral: Normal. RIGHT VENTRICLE: Right ventricle is normal in size and systolic function LEFT ATRIUM: Left atrium is borderline enlarged RIGHT ATRIUM: Right atrium is normal size ATRIAL SEPTUM: There is no large interatrial shunt seen. PFO was not assessed MITRAL VALVE: Mitral valve appears normal structure. There is mild regurgitation and no stenosis seen Continued Report - Page 3 of 3 Patient: MARKO TRAN Phone#: : 1960 Age: 64 Gender: M Pt. Type: Out Account: [id number] Location: [facility] Ordering: MOY ASTORGA Exam Date: 07/03/2024/7:25 Family Phys: DIONI PASCUAL Charge Code: [id number] Physician: Daniels Order #: [id number] Dose#: TRICUSPID VALVE: Tricuspid valve is normal structure. There is trivial regurgitation and no stenosis seen AORTIC VALVE: Aortic valve is trileaflet. There is trivial regurgitation no stenosis seen PULMONIC VALVE: Pulmonic valve is inadequately visualized. There is trivial regurgitation and no stenosis seen AORTIC ROOT: Aortic root is dilated at 4.0 cm. AORTIC ARCH: Inadequately visualized DESC THORACIC AORTA: Inadequately visualized. IVC/SVC: IVC is normal in size more than 50% collapse of inspiration. Estimated atrial pressure is 3 mm Hg PULMONARY VEINS: Normal Bethany vein flow. PERICARDIUM: There is no pericardial effusion seen. CONCLUSION: 1. There is prominent sigmoid septum. Left ventricle is normal size. Systolic ejection fraction 60-65% with normal wall motion 2. Left atrium is borderline enlarged. 3. There is mild mitral valve regurgitation seen 4. Right ventricle is normal size and systolic function 5. TR velocity is inadequate to calculate for right ventricular systolic pressure 6. Aortic root is dilated 4.0 cm. Dictated by: MOY ASTORGA MD on 07/03/2024 at 10:03 Approved by: MOY ASTORGA MD on 07/03/2024 at 10:18 Normal [facility] NM CARDIAC STRESS (SPECT) W/ TREADMILLon 07-03-2024 NM CARDIAC STRESS (SPECT) W/TREADMILL [place] [address] Patient: MARKO TRAN Phone#: : 1960 Age: 64 Gender: M Pt. Type: Out Account: [id number] Location: [facility] Ordering: MOY ASTORGA Exam Date: 07/03/2024/8:39 Family Phys: DIONI PASCUAL Charge Code: [id number] Physician: Daniels Order #: [id number] Dose#: PROCEDURE: CARDIAC STRESS SPECT WITH TREADMILL EXERCISE HISTORY: Patient is a 64-year-old male with atrial fibrillation COMPARISON: None. INDICATIONS: AFIB TECHNIQUE: Resting and stress SPECT images acquired in the horizontal long, vertical long and short axis views. Protocol: Clarke Duration: 6:19 minutes Peak Heart Rate: 136 bpm, which is 87% of maximum predicted heart rate. Workload: 7.40 METs REST DOSE: 10.1 mCi Sestamibi. STRESS DOSE: 34.6 mCi Sestamibi. INTERPRETATION: Resting Images: Resting images showed moderate to severe perfusion defect in the basal to distal inferior wall and mild perfusion defect in the mid anterior wall which improved with stress. There is subdiaphragmatic attenuation artifact seen Stress Images: Stress images showed mild to moderate perfusion defect in the basal to distal inferior wall minimally improved from resting images. There is no associated wall motion abnormality to suggest infarct. There is diaphragmatic attenuation artifact seen. Gated SPECT/wall motion: Calculated ejection fraction of 65%. There are no regional wall motion abnormality seen. TID ratio is 0.92 CONCLUSION: 1. Nuclear stress test showed no conclusive evidence of reversible ischemia or infarct. 2. There is fixed defect in the inferior wall improved with stress suggestive attenuation artifact. 3. Calculated ejection fraction is 65% with normal wall motion. 4. TID ratio is normal. 5. Compared to prior study done in 2017, there are no significant changes seen. [place] [address] Patient: MARKO TRAN Phone#: : 1960 Age: 64 Gender: M Pt. Type: Out Account: [id number] Location: 052 Ordering: MOY ASTORGA Exam Date: 07/03/2024/8:39 Family Phys: BUTROS LATOUF Charge Code: [id number] Physician: Daniels Order #: [id number] Dose#: Dictated by: MOY ASTORGA MD on 07/03/2024 at 11:09 Approved by: MOY ASTORGA MD on 07/03/2024 at 11:17 Normal [facility] NM EXERCISE STRESS TEST (W/C ARDIAC STUDYon 07-03-2024 NM EXERCISE STRESS TEST (W/CARDIAC STUDY [place] [address] Patient: MARKO TRAN Phone#: : 1960 Age: 64 Gender: M Pt. Type: Out Account: [id number] Location: 052 Ordering: MOY ASTORGA Exam Date: 07/03/2024/9:04 Family Phys: BUTROS LATOUF Charge Code: 033060 Physician: Daniels Order #: [id number] Dose#: PROCEDURE: ELECTROCARDIOGRAM STRESS TEST HISTORY: Patient 64-year-old male COMPARISON: None. INDICATIONS: Afib, chest pain TECHNIQUE: Electrocardiogram stress test was performed using the protocol listed below. STRESS RESULTS: Protocol: Clarke Duration: 06:19minutes Reason for termination: Leg fatigue Resting Heart Rate: 63 bpm. Resting Blood Pressure: 181/95 mmHg Peak Heart Rate: 136 which is 87% of maximum predicted heart rate Peak Blood Pressure: 203/103 occurred 3:41 into recovery Workload: 7.40 METs. Symptoms with stress: Patient did not complain of any chest pain with stress. Stress test was ended due to leg fatigue. EKG Data EKG at Baseline: EKG at baseline showed sinus rhythm at 63 BPM. Normal EKG EKG with Stress: EKG with stress showed sinus tachycardia at 133 BPM. There is [address] depression seen in leads II, AVF and leads V4, V5 and V6 which does not fulfill criteria for ischemia. CONCLUSION: 1. Patient did not complain of chest pain with stress with stress test was ended due to leg fatigue. 2. Patient was able to achieve average workload capacity. 3. Patient had appropriate heart rate and blood pressure response to stress 4. Stress EKG is negative for inducible ischemia. 5. Nuclear images will be reported separately. [address] [address] Patient: MARKO TRAN Phone#: : 1960 Age: 64 Gender: M Pt. Type: Out Account: [id number] Location: 052 Ordering: MOY ASTORGA Exam Date: 07/03/2024/9:04 Family Phys: GERARDHIEN ANKUR Charge Code: [id number] Physician: Daniels Order #: [id number] Dose#: Dictated by: MOY ASTORGA MD on 07/03/2024 at 10:36 Approved by: MOY ASTORGA MD on 07/03/2024 at 10:[address] [facility] THYROIDon 06-12-2024 [place] [address] Patient: MARKO TRAN Phone#: : 1960 Age: 64 Gender: M Pt. Type: Out Account: [id number] Location: [facility] Ordering: DIONI ADDISON Exam Date: 06/12/2024/7:35 Family Phys: Charge Code: [id number] Physician: Daniels Order #: [id number] Dose#: PROCEDURE: THYROID ULTRASOUND COMPARISON: None. INDICATIONS: Enlarged thyroid TECHNIQUE: High-resolution ultrasound was performed of the thyroid gland. FINDINGS: RIGHT LOBE: The right thyroid lobe is 4.8 x 2.2 x 2.2 centimeters. There are several simple cysts less than 3 millimeters in size. LEFT LOBE: The left thyroid lobe is 4.5 x 1.9 x 1.7 centimeters. At the upper pole is a 5 x 4 x 8 millimeter TR 4 nodule not requiring further evaluation. The mid lobe is a 6 x 8 x 8 millimeter TR 5 nodule. Follow-up evaluation yearly for 5 years is recommended. ISTHMUS: Normal. No visible mass, cyst, calcification, enlargement, or abnormal echotexture. Isthmus measures 0.3 cm. OTHER: None. CONCLUSION: 1. Poles simple cysts are present in the right thyroid lobe. 2. Thyroid lobe is TR 4 nodule not requiring further evaluation. There is a mid lobe TR 5 nodule. Follow-up evaluation yearly for 5 years is recommended. Dictated by: Allison Shirley MD on 06/12/2024 at 18:33 Approved by: Allison Shirley MD on 06/12/2024 at 18:41 Normal [facility] PSA, FREE [CCL]on 05-31-2024 PSA, Diagnostic 2.93 ng/mL High <2.60 [facility] Comment on above: Result Comment: Tota l PSA test methodology used is the Electrochemiluminescence Immunoassay by [employer]. Total PSA values by differing methodologies cannot be interchanged. For an individual patient, the significance of a PSA level should be interpreted in a broad clinical context, including age, race, family history, digital rectal exam, prostate size, results of prior testing (prostate biopsy, free PSA, PCA3), and use of 5-alpha reductase inhibitors. Considering the high incidence of asymptomatic cancer in the general population that may not pose an ultimate risk to a patient, the decision to recommend urological evaluation or prostate biopsy should be individualized after consideration of all these factors. REFERENCE: Mehdi Rangel M.D., M.P.H., Iron Hernandez M.D., Ph.D., Richmond Herring M.D., Elena Reilly, M.P.H., Senait Coto, Scar. Effect of Verification Bias on Screening for Prostate Cancer by Measurement of Prostatic Specific Antigen. N Engl J Med 2003,349:335-42. Performed By: #### 2 71973 ####[facility],[address] [place], [place] [address] PSA, Percent Free 11 % Normal [facility] Comment on above: Result Comment: Tota l and free PSA test methodology used is the Electrochemiluminescence Immunoassay by [employer]. Total or free PSA values by differing methodologies cannot be interchanged. The below table lists the probability of finding prostate cancer upon needle biopsy, for men 50 years or older and total PSA concentrations from 4.0-10.0 ng/mL. Results should be interpreted within the broader clinical context. Free PSA(%) 50-59 years 60-69 years >69 years <11 49.2% 57.5% 64.5% 11-18 26.9% 33.9% 40.8% 19-25 18.3% 23.9% 29.7% >25 9.1% 12.2% 15.8% [facility] [address] [place] [address] Farhat Hernandez III, M.D. [id number] Performed By: #### 2 50772 ####[facility],[address] [place] [address] CBC + DIFFon 05-30-2024 Baso # 0.02 x10EE3/UL Normal 0.00 - 0.10 [facility] Comment on above: Performed By: #### 2 01984 #### [facility],[address] [place], [place] [address] Basophils/100 WBC (Bld) 0.4 % Normal 0.0 - 2.0 [facility] Comment on above: Performed By: #### 2 05807 #### [facility],[address] [place] [address] CBC + DIFF Normal [facility] Comment on above: Result Comment: CBC- COMPLETE BLOOD COUNT Performed By: #### 2 43068 #### [facility],[address] [place] [address] EO # 0.10 x10EE3/UL Normal 0.00 - 0.50 [facility] Comment on above: Performed By: #### 2 75503 #### [place] [address] Eosinophils/100 WBC (Bld) 2.3 % Normal 0.0 - 7.0 [facility] Comment on above: Performed By: #### 2 27044 #### [facility],[address] [place] [address] Erythrocyte distribution width (RBC) [Ratio] 13.0 % Normal 12.0 - 15.6 [facility] Comment on above: Performed By: #### 2 01792 #### [facility],[address] [place] [address] Hematocrit (Bld) [Volume fraction] 39.0 % Low 40.0 - 52.0 [facility] Comment on above: Performed By: #### 2 04876 #### [facility],[address] [place] [address] Hemoglobin (Bld) [Mass/Vol] 13.5 g/dL Normal 13.0 - 17.5 [facility] Comment on above: Performed By: #### 2 42865 #### [facility],[address] [place] [address] Lymph # 1.50 x10EE3/UL Normal 0.80 - 2.80 [facility] Comment on above: Performed By: #### 2 44216 #### [place] [address] Lymphocytes/100 WBC (Bld) 33.1 % Normal 20.0 - 45.0 [facility] Comment on above: Performed By: #### 2 37871 #### [facility],[address] [place] [address] MANUAL DIFF N/A Normal [facility] Comment on above: Performed By: #### 2 92756 #### [place] [address] MCH (RBC) [Entitic mass] 33 pg Normal 27 - 33 [facility] Comment on above: Performed By: #### 2 18231 #### [place] [address] MCHC 35 X10 3 Normal 32 - 36 [facility] Comment on above: Performed By: #### 2 12610 #### [place] [address] MCV (RBC) [Entitic vol] 94 fL Normal 81 - 98 [facility] Comment on above: Performed By: #### 2 09995 #### [facility],[address] [place] [address] Hancock # 0.54 x10EE3/UL Normal 0.20 - 1.00 [facility] Comment on above: Performed By: #### 2 62299 #### [place] [address] MONOS % 11.9 % High 0.0 - 10.0 [facility] Comment on above: Performed By: #### 2 71591 #### [facility],[address] [place], [place] [address] Morphology Jeff (Bld) [Interp] N/A Normal [facility] Comment on above: Performed By: #### 2 08342 #### [facility],[address] [place] [address] Neut # 2.36 x10EE3/UL Normal 1.50 - 7.10 [facility] Comment on above: Performed By: #### 2 59006 #### [facility],[address] [place] [address] Neutrophils/100 WBC (Bld) 52.3 % Normal 46.0 - 76.0 [facility] Comment on above: Performed By: #### 2 56852 #### [facility],[address] [place], [place] [address] PLATELET 218 x10EE3/UL Normal 150 - 450 [facility] Comment on above: Performed By: #### 2 83390 #### [place] [address] Platelet mean volume (Bld) [Entitic vol] 6.7 fL Normal 6.4 - 10.5 [facility] Comment on above: Result Comment: AUTO MATED DIFFERENTIAL Performed By: #### 2 31879 #### [address] [address] RBC 4.14 x 10EE6/UL Low 4.50 - 6.00 [facility] Comment on above: Performed By: #### 2 01497 #### [facility],[address] [place] [address] WBC 4.5 x 10EE3/UL Normal 4.5 - 10.8 [facility] Comment on above: Performed By: #### 2 03797 #### [address] [address] CMP with eGFRon 05-30-2024 AGE 64 years Normal [facility] Comment on above: Performed By: #### 2 09199 #### [address] [address] Albumin [Mass/Vol] 4.3 g/dL Normal 3.4 - 5.0 [facility] Comment on above: Performed By: #### 2 85429 #### [facility],[address] [place] [address] Albumin/Globulin [Mass ratio] 1.3 {ratio} Normal 0.9 - 1.6 [facility] Comment on above: Performed By: #### 2 74087 #### [facility],[address] [place] [address] ALK PHOS 55 U/L Normal 46 - 116 [facility] Comment on above: Performed By: #### 2 65255 #### [facility],[address] [place] [address] ALT [Catalytic activity/Vol] 44 U/L Normal 16 - 63 [facility] Comment on above: Performed By: #### 2 54566 #### [facility],[address] [place] [address] Anion gap [Moles/Vol] 16 mmol/L Normal 10 - 20 [facility] Comment on above: Performed By: #### 2 08143 #### [facility],[address] [place] [address] AST [Catalytic activity/Vol] 53 U/L High 15 - 37 [facility] Comment on above: Performed By: #### 2 27917 #### [facility],[address] [place] [address] B/C RATIO 11 ratio Normal 0 - 30 [facility] Comment on above: Performed By: #### 2 81958 #### [facility],[address] [place] [address] Bilirubin [Mass/Vol] 0.6 mg/dL Normal 0.2 - 1.0 [facility] Comment on above: Performed By: #### 2 15124 #### [facility],[address] [place] [address] Calcium [Mass/Vol] 9.1 mg/dL Normal 8.5 - 10.1 [facility] Comment on above: Performed By: #### 2 95503 #### [facility],[address] [place], [place] [address] Chloride [Moles/Vol] 101 mmol/L Normal 98 - 107 [facility] Comment on above: Performed By: #### 2 69091 #### [facility],[address] [place], [place] [address] CMP with eGFR Normal [facility] Comment on above: Result Comment: COMP REHENSIVE METABOLIC PANEL Performed By: #### 2 33603 #### [facility],[address] [place] [address] CO2 [Moles/Vol] 27.5 mmol/L Normal 21.0 - 32.0 [facility] Comment on above: Performed By: #### 2 43159 #### [facility],[address] [place], [place] [address] Creatinine [Mass/Vol] 0.66 mg/dL Low 0.70 - 1.30 [facility] Comment on above: Performed By: #### 2 60622 #### [facility],[address] [place] [address] GFR/1.73 sq M.predicted among non-blacks MDRD (S/P/Bld) [Vol rate/Area] mL/min/{1.73_m2} Normal 60 - 999 [facility] Comment on above: Performed By: #### 2 82150 #### [facility],[address] [place], [place] [address] Result Comment: ACCO RDING TO THE NATIONAL KIDNEY DISEASE EDUCATION PROGRAM(NKDE), A NORMAL eGFR IS A VALUE GREATER THAN OR EQUAL TO 60 ML/MIN/1.73 SQ METERS. CHRONIC KIDNEY DISEASE: <60mL/MIN/1.73 SQ METERS KIDNEY FAILURE: <15mL/MIN/1.73 SQ METERS THIS TEST SHOULD ONLY BE USED FOR PATIENTS 18 YEARS OF AGE AND OLDER. Globulin (S) [Mass/Vol] 3.2 g/dL Normal 1.5 - 3.8 [facility] Comment on above: Performed By: #### 2 57213 #### [facility],[address] [place] [address] Glucose [Mass/Vol] 85 mg/dL Normal 74 - 106 [facility] Comment on above: Performed By: #### 2 78765 #### [facility],[address] [place] [address] Potassium [Moles/Vol] 4.1 mmol/L Normal 3.5 - 5.1 [facility] Comment on above: Performed By: #### 2 73434 #### [facility],[address] [place] [address] Protein [Mass/Vol] 7.5 g/dL Normal 6.4 - 8.2 [facility] Comment on above: Performed By: #### 2 78224 #### [facility],[address] [place] [address] Sodium [Moles/Vol] 140 mmol/L Normal 136 - 145 [facility] Comment on above: Performed By: #### 2 95653 #### [facility],[address] [place] [address] Urea nitrogen [Mass/Vol] 7 mg/dL Normal 7 - 18 [facility] Comment on above: Performed By: #### 2 45789 #### [facility],[address] [place] [address] Free PSA [Mass/Vol]on 2024 Free PSA/Total PSA [Mass fraction] 11 % Normal [facility] Comment on above: Order Comment: Speci men Type: BLOOD SPECIMEN Ordering Facility: [facility] Address: [address] [place] [address] 12[address] Result Comment: Tota l and free PSA test methodology used is the Electrochemiluminescence Immunoassay by [employer]. Total or free PSA values by differing methodologies cannot be interchanged. The below table lists the probability of finding prostate cancer upon needle biopsy, for men 50 years or older and total PSA concentrations from 4.0-10.0 ng/mL. Results should be interpreted within the broader clinical context. Free PSA(%) 50-59 years 60-69 years >69 years <11 49.2% 57.5% 64.5% 11-18 26.9% 33.9% 40.8% 19-25 18.3% 23.9% 29.7% >25 9.1% 12.2% 15.8% Performed By: #### 1 0886-0 #### [facility] CLIA [id number] [facility] [place] [address] [place] Prostate specific Ag [Mass/Vol] 2.93 ng/mL High <2.60 [facility] Comment on above: Order Comment: Speci men Type: BLOOD SPECIMEN Ordering Facility: [facility] Address: [address] [place] [address] Result Comment: Rogera brooks PSA test methodology used is the Electrochemiluminescence Immunoassay by [employer]. Total PSA values by differing methodologies cannot be interchanged. For an individual patient, the significance of a PSA level should be interpreted in a broad clinical context, including age, race, family history, digital rectal exam, prostate size, results of prior testing (prostate biopsy, free PSA, PCA3), and use of 5-alpha reductase inhibitors. Considering the high incidence of asymptomatic cancer in the general population that may not pose an ultimate risk to a patient, the decision to recommend urological evaluation or prostate biopsy should be individualized after consideration of all these factors. REFERENCE: Mehdi Rangel M.D., M.P.H., Iron Hernandez M.D., Ph.D., Richmond Herring M.D., Elena Reilly, M.P.H., Senait Coto Sc.D. Effect of Verification Bias on Screening for Prostate Cancer by Measurement of Prostatic Specific Antigen. N Engl J Med 2003,349:335-42. Performed By: #### 1 0886-0 #### [facility] CLIA [id number] [address] [place] [address] [place] HEMOGLOBIN A1C (POM)on 05-30 Glucose [Mass/Vol] 108.3 mg/dL High 0.0 - 0.0 [facility] Comment on above: Result Comment: BLDo HEMOGLOBIN A1C REFERENCE RANGESBLDo Suggested Diagnosis HbA1c(%) HbA1C (mmol/mol Diabetic >/=6.5 >/=48 Prediabetes 5.7 - 6.4 39 - 47 Normal <5.7 <39 Performed By: #### 2 65104 ####[facility],[address] [place] [address] 33714 HbA1c (Bld) [Mass fraction] 5.4 % Normal 0.0 - 6.5 [facility] Comment on above: Performed By: #### 2 58777 ####[facility],[address] [place] [address] 49425 LIPID PROFILEon 05-30-2024 Cholesterol [Mass/Vol] 181 mg/dL Normal 0 - 240 [facility] Comment on above: Performed By: #### 2 75500 #### [facility],[address] [place] [address] 95923 Cholesterol in HDL [Mass/Vol] 91 mg/dL High 40 - 60 [facility] Comment on above: Performed By: #### 2 00894 #### [facility],[address] [place] [address] 67900 Cholesterol in LDL [Mass/Vol] 76 mg/dL Normal 0 - 129 [facility] Comment on above: Performed By: #### 2 45879 #### [facility],[address] [place] [address] 65431 Cholesterol.total/Cho lesterol in HDL [Mass ratio] 2.0 {ratio} Normal 0.0 - 5.0 [facility] Comment on above: Performed By: #### 2 60908 #### [facility],[address] [place] [address] 86116 Lipid 1996 panel Normal [facility] Comment on above: Result Comment: LIPI D PROFILE Performed By: #### 2 84636 #### [facility],[address] [place] [address] 72000 Triglyceride [Mass/Vol] 68 mg/dL Normal 0 - 150 [facility] Comment on above: Performed By: #### 2 69547 #### [facility],[address] [place] [address] 98717 TSHon 05-30-2024 TSH Qn 1.38 m[IU]/L Normal 0.35 - 3.74 [facility] Comment on above: Performed By: #### 2 93287 #### [facility],[address] [place] [address] 60600 US BREAST RT UNILATERAL COMP LETEon 12-06-2023 US BREAST RT UNILATERAL [place] [address] Patient: CHELSEA MARKO Louise Phone#: : 1960 Age: 63 Gender: M Pt. Type: Out Account: [id number] Location: [facility] Ordering: DIONI PASCUAL Exam Date: 12/06/2023/13:34 Family Phys: Charge Code: 363845 Physician: Daniels Order #: [id number] Dose#: PROCEDURE: ULTRASOUND BREAST RT COMPARISON: None. INDICATIONS: Right breast pain TECHNIQUE: Breast ultrasound was performed, with evaluation focusing on all four quadrants. FINDINGS: DIAGNOSTIC CATEGORY 2--BENIGN: RIGHT BREAST: Solid benign-appearing circumscribed mass, hypoechoic echotexture, subareolar depth, 12 o'clock position, and 14 mm size. Appearance is most suggestive of gynecomastia. RECOMMENDATIONS: CLINICAL EVALUATION. PLEASE NOTE: A NORMAL MAMMOGRAM DOES NOT EXCLUDE THE POSSIBILITY OF BREAST CANCER. A CLINICALLY SUSPICIOUS PALPABLE LUMP SHOULD BE BIOPSIED. Dictated by: Allison Shirley MD on 12/06/2023 at 17:23 Approved by: Allison Shirley MD on 12/06/2023 at 17:24 Normal [facility] CBC W Auto Differential pane l (Bld)on 10-12-2023 Basophils (Bld) [#/Vol] 0.01 x10*3/uL Normal 0.00-0.10 [facility] Comment on above: Performed By: #### 5 7021-8 #### GABRIEL EDWARDS ([id number]) [facility] ([facility]) [address] [place] [address] 34990 Basophils/100 WBC (Bld) 0.2 % Normal 0.0-2.0 [facility] Comment on above: Performed By: #### 5 7021-8 #### GABRIEL EDWARDS ([id number]) [facility] ([facility]) [address] [place] [address] 90829 Eosinophils (Bld) [#/Vol] 0.17 x10*3/uL Normal 0.00-0.70 [facility] Comment on above: Performed By: #### 5 7021-8 #### GABRIEL EDWARDS ([id number]) [facility] ([facility]) [address] [place] [address] 94070 Eosinophils/100 WBC (Bld) 3.2 % Normal 0.0-6.0 [facility] Comment on above: Performed By: #### 5 7021-8 #### GABRIEL EDWARDS ([id number]) [facility] ([facility]) [address] [place] [address] 47349 Erythrocyte distribution width (RBC) [Ratio] 12.8 % Normal 11.5-14.5 [facility] Comment on above: Performed By: #### 5 7021-8 #### GABRIEL EDWARDS ([id number]) [facility] ([facility]) [address] [place] [address] 94354 Hematocrit (Bld) [Volume fraction] 36.3 % Low 41.0-52.0 [facility] Comment on above: Performed By: #### 5 7021-8 #### GABRIEL EDWARDS ([id number]) [facility] ([facility]) [address] [place] [address] 29902 Hemoglobin (Bld) [Mass/Vol] 12.3 g/dL Low 13.5-17.5 [facility] Comment on above: Performed By: #### 5 7021-8 #### GABRIEL EDWARDS ([id number]) [facility] ([facility]) [address] [place] [address] 69260 Immature granulocytes (Bld) [#/Vol] 0.01 x10*3/uL Normal 0.00-0.70 [facility] Comment on above: Performed By: #### 5 7021-8 #### GABRIEL EDWARDS ([id number]) [facility] ([facility]) [address] [place] [address] 03040 Immature granulocytes/100 WBC (Bld) 0.2 % Normal 0.0-0.9 [facility] Comment on above: Result Comment: Rolanda ture Granulocyte Count (IG) includes promyelocytes, myelocytes and metamyelocytes but does not include bands. Percent differential counts (%) should be interpreted in the context of the absolute cell counts (cells/UL). Performed By: #### 5 7021-8 #### GABRIEL EDWARDS ([id number]) [facility] ([facility]) [address] [place] [address] 09415 Lymphocytes (Bld) [#/Vol] 1.36 x10*3/uL Normal 1.20-4.80 [facility] Comment on above: Performed By: #### 5 7021-8 #### GABRIEL EDWARDS ([id number]) [facility] ([facility]) [address] [place] [address] 79900 Lymphocytes/100 WBC (Bld) 25.7 % Normal 13.0-44.0 [facility] Comment on above: Performed By: #### 5 7021-8 #### GABRIEL EDWARDS ([id number]) [facility] ([facility]) [address] [place] [address] 31956 MCH (RBC) [Entitic mass] 31.5 pg Normal 26.0-34.0 [facility] Comment on above: Performed By: #### 5 7021-8 #### GABRIEL EDWARDS ([id number]) [facility] ([facility]) [address] [place] [address] 12196 MCHC (RBC) [Mass/Vol] 33.9 g/dL Normal 32.0-36.0 [facility] Comment on above: Performed By: #### 5 7021-8 #### GABRIEL EDWARDS ([id number]) [facility] ([facility]) [address] [place] [address] 92122 MCV (RBC) [Entitic vol] 93 fL Normal 80-100 [facility] Comment on above: Performed By: #### 5 7021-8 #### GABRIEL EDWARDS ([id number]) [facility] ([facility]) [address] [place] [address] 85960 Monocytes (Bld) [#/Vol] 0.76 x10*3/uL Normal 0.10-1.00 [facility] Comment on above: Performed By: #### 5 7021-8 #### GABRIEL EDWARDS ([id number]) [facility] ([facility]) [address] [place] [address] 84742 Monocytes/100 WBC (Bld) 14.3 % Normal 2.0-10.0 [facility] Comment on above: Performed By: #### 5 7021-8 #### GABRIEL EDWARDS ([id number]) [facility] ([facility]) [address] [place] [address] 77056 Neutrophils (Bld) [#/Vol] 2.99 x10*3/uL Normal 1.20-7.70 [facility] Comment on above: Result Comment: Perc ent differential counts (%) should be interpreted in the context of the absolute cell counts (cells/uL). Performed By: #### 5 7021-8 #### GABRIEL EDWARDS ([id number]) [facility] ([facility]) [address] [place] [address] 47450 Neutrophils/100 WBC (Bld) 56.4 % Normal 40.0-80.0 [facility] Comment on above: Performed By: #### 5 7021-8 #### GABRIEL EDWARDS ([id number]) [facility] ([facility]) [address] [place] [address] 69013 Nucleated RBC/100 WBC (Bld) [Ratio] 0.0 /100 WBCs Normal 0.0-0.0 [facility] Comment on above: Performed By: #### 5 7021-8 #### GABRIEL EDWARDS ([id number]) [facility] ([facility]) [address] [place] [address] 28059 Platelets (Bld) [#/Vol] 212 x10*3/uL Normal 150-450 [facility] Comment on above: Performed By: #### 5 7021-8 #### GABRIEL EDWARDS ([id number]) [facility] ([facility]) [address] [place] [address] RBC (Bld) [#/Vol] 3.91 x10*6/uL Low 4.50-5.90 [facility] Comment on above: Performed By: #### 5 7021-8 #### GABRIEL EDWARDS ([id number]) [facility] ([facility]) [address] [place] [address] WBC (Bld) [#/Vol] 5.3 x10*3/uL Normal 4.4-11.3 [facility] Comment on above: Performed By: #### 5 7021-8 #### GABRIEL EDWARDS ([id number]) [facility] ([facility]) [address] [place] [address] Comprehensive metabolic 2000 panelon 10-12-2023 Albumin BCP dye [Mass/Vol] 4.9 g/dL Normal 3.4-5.0 [facility] Comment on above: Performed By: #### 2 4323-8 #### GABRIEL EDWARDS ([id number]) [facility] ([facility]) [address] [place], [place] [address] ALP [Catalytic activity/Vol] 58 U/L Normal 33-136 [facility] Comment on above: Performed By: #### 2 4323-8 #### GABRIEL EDWARDS ([id number]) [facility] ([facility]) [address] [place] [address] ALT With P-5'-P [Catalytic activity/Vol] 27 U/L Normal 10-52 [facility] Comment on above: Result Comment: Yoly ents treated with Sulfasalazine may generate falsely decreased results for ALT. Performed By: #### 2 4323-8 #### GABRIEL EDWARDS ([id number]) [facility] ([facility]) [address] [place] [address] Anion gap [Moles/Vol] 11 mmol/L Normal 10-20 [facility] Comment on above: Performed By: #### 2 4323-8 #### GABRIEL EDWARDS ([id number]) [facility] ([facility]) [address] [place] [address] 28657 AST With P-5'-P [Catalytic activity/Vol] 28 U/L Normal 9-39 [facility] Comment on above: Performed By: #### 2 4323-8 #### GABRIEL EDWARDS ([id number]) [facility] ([facility]) [address] [place] [address] 55547 Bilirubin [Mass/Vol] 0.7 mg/dL Normal 0.0-1.2 [facility] Comment on above: Performed By: #### 2 432-8 #### GABRIEL EDWARDS ([id number]) [facility] ([facility]) [address] [place] [address] 06444 Calcium [Mass/Vol] 9.3 mg/dL Normal 8.6-10.3 [facility] Comment on above: Performed By: #### 2 432-8 #### GABRIEL EDWARDS ([id number]) [facility] ([facility]) [address] [place] [address] 21768 Chloride [Moles/Vol] 99 mmol/L Normal 98-107 [facility] Comment on above: Performed By: #### 2 4323-8 #### GABRIEL EDWARDS ([id number]) [facility] ([facility]) [address] [place] [address] 33753 CO2 [Moles/Vol] 27 mmol/L Normal 21-32 [facility] Comment on above: Performed By: #### 2 4323-8 #### GABRIEL EDWARDS ([id number]) [facility] ([facility]) [address] [place] [address] 24086 Creatinine [Mass/Vol] 0.65 mg/dL Normal 0.50-1.30 [facility] Comment on above: Performed By: #### 2 4323-8 #### GABRIEL EDWARDS ([id number]) [facility] ([facility]) [address] [place] [address] 98271 GFR/1.73 sq M.predicted MDRD (S/P/Bld) [Vol rate/Area] mL/min/{1.73_m2} Normal >60 [facility] Comment on above: Result Comment: Calc ulations of estimated GFR are performed using the 2020 CKD-EPI Study Refit equation without the race variable for the IDMS-Traceable creatinine methods. https://jasn.asnjournals.org/content/early/ASN.642496 7404 Performed By: #### 2 432-8 #### GABRIEL EDWARDS ([id number]) [facility] ([facility]) [address] [place] [address] 80145 Glucose [Mass/Vol] 100 mg/dL High 74-99 [facility] Comment on above: Performed By: #### 2 432-8 #### GABRIEL EDWARDS ([id number]) [facility] ([facility]) [address] [place] [address] 86392 Potassium [Moles/Vol] 4.4 mmol/L Normal 3.5-5.3 [facility] Comment on above: Performed By: #### 2 432-8 #### GABRIEL EDWARDS ([id number]) [facility] ([facility]) [address] [place] [address] 70492 Protein [Mass/Vol] 6.5 g/dL Normal 6.4-8.2 [facility] Comment on above: Performed By: #### 2 4323-8 #### GABRIEL EDWARDS ([id number]) [facility] ([facility]) [address] [place] [address] 28152 Sodium [Moles/Vol] 133 mmol/L Low 136-145 [facility] Comment on above: Performed By: #### 2 432-8 #### GABRIEL EDWARDS ([id number]) [facility] ([facility]) [address] [place] [address] Urea nitrogen [Mass/Vol] 11 mg/dL Normal 6-23 [facility] Comment on above: Performed By: #### 2 4323-8 #### GABRIEL EDWARDS ([id number]) [facility] ([facility]) [facility] [place] [address] Lipid 1996 panelon 4 Cholesterol [Mass/Vol] 167 mg/dL Normal 0-199 [facility] Comment on above: Result Comment: Age Desirable Borderline High High 0-19 Y 0 - 169 170 - 199 >/= 200 20-24 Y 0 - 189 190 - 224 >/= 225 >24 Y 0 - 199 200 - 239 >/= 240 All ranges are based on fasting samples. Specific therapeutic targets will vary based on patient-specific cardiac risk. Pediatric guidelines reference:Pediatrics 2011, 128(S5).Adult guidelines reference: NCEP ATPIII Guidelines,JEREMIAS 2001, 258:2486-97 Venipuncture immediately after or during the administration of Metamizole may lead to falsely low results. Testing should be performed immediately prior to Metamizole dosing. Performed By: #### 2 4331-1 #### GABRIEL EDWARDS ([id number]) [facility] ([facility]) [address] [place] [address] 27954 Cholesterol in HDL [Mass/Vol] 74.0 mg/dL Normal [facility] Comment on above: Result Comment: Age Very Low Low Normal High 0-19 Y < 35 < 40 40-45 ---- 20-24 Y ---- < 40 >45 ---- >24 Y ---- < 40 40-60 >60 Performed By: #### 2 4331-1 #### GABRIEL EDWARDS ([id number]) [facility] ([facility]) [facility] [place] [address] Cholesterol in LDL [Mass/Vol] 78 mg/dL Normal <=99 [facility] Comment on above: Result Comment: Near Borderline AGE Desirable Optimal High High Very High 0-19 Y 0 - 109 --- 110-129 >/= 130 ---- 20-24 Y 0 - 119 --- 120-159 >/= 160 ---- >24 Y 0 - 99 100-129 130-159 160-189 >/=190 Performed By: #### 2 4331-1 #### GABRIEL EDWARDS ([id number]) [facility] ([facility]) [facility] [place] [address] Cholesterol in VLDL [Mass/Vol] 15 mg/dL Normal 0-40 [facility] Comment on above: Performed By: #### 2 4331-1 #### GABRIEL EDWARDS ([id number]) [facility] ([facility]) [facility] [place] [address] CHOLESTEROL/HDL RATIO 2.3 Normal [facility] Comment on above: Result Comment: Ref Values Desirable < 3.4 High Risk > 5.0 Performed By: #### 2 4331-1 #### GABRIEL EDWARDS ([id number]) [facility] ([facility]) [address] [place] [address] 20518 NON HDL CHOLESTEROL 93 mg/dL Normal 0-149 [facility] Comment on above: Result Comment: Age Desirable Borderline High High Very High 0-19 Y 0 - 119 120 - 144 >/= 145 >/= 160 20-24 Y 0 - 149 150 - 189 >/= 190 ---- >24 Y 30 mg/dL above LDL Cholesterol goal Performed By: #### 2 4331-1 #### GABRIEL EDWARDS ([id number]) [facility] ([facility]) [address] [place] [address] 79597 Triglyceride [Mass/Vol] 76 mg/dL Normal 0-149 [facility] Comment on above: Result Comment: Age Desirable Borderline High High Very High 0 D-90 D 19 - 174 ---- ---- ---- 91 D- 9 Y 0 - 74 75 - 99 >/= 100 ---- 10-19 Y 0 - 89 90 - 129 >/= 130 ---- 20-24 Y 0 - 114 115 - 149 >/= 150 ---- >24 Y 0 - 149 150 - 199 200- 499 >/= 500 Venipuncture immediately after or during the administration of Metamizole may lead to falsely low results. Testing should be performed immediately prior to Metamizole dosing. Performed By: #### 2 4331-1 #### RIOS GRACE ([id number]) [facility] ([facility]) [address] [place], [place] [address] Thyrotropinon 10-12-2023 TSH Qn 1.91 m[IU]/L Normal 0.44-3.98 [facility] Comment on above: Order Comment: TSH t esting is performed using different testing methodology at [facility] than at other [facility]. Direct result comparisons should only be made within the same method. Performed By: #### 3 016-3 #### RIOS GRACE ([id number]) [facility] ([facility]) [address] [place] [address] Final Surgical Pathology Rep [facility] 09-19-2023 Final Surgical Pathology Report . Pathology Reports Accession: Collected Date/Time: Received Date/Time: Pathologist: [id number] 09/16/2023 12:34 EDT 09/18/2023 09:25 EDT LETTY SIMMS MD Final Surgical Pathology Report DIAGNOSIS: A. SIGMOID COLON POLYP: - HYPERPLASTIC POLYP B. TRANSVERSE COLON POLYP: - POLYPOID FRAGMENTS OF COLON MUCOSA WITH FOCAL ACTIVE COLITIS PATTERN Comment: The biopsies show polypoid colon mucosa with normal architecture, multiple foci of cryptitis with an crypt abscesses and a patchy increase in chronic inflammation in lamina propria. This is a nonspecific finding that may be seen with self-limited colitis and medication effect, among others. No granulomas are identified. Clinical correlation recommended. COMMENT: [id number] CLINICAL INFORMATION: SCREEN COLON SPECIMEN: A SIGMOID POLYP B TRANSVERSE POLYP GROSS DESCRIPTION: All parts labelled with patient name and [id number] A. Received in formalin labeled sigmoid is 1 zimmerman tissue fragment measuring 0.5 x 0.3 cm greatest dimension. TS-1 B. Received in formalin labeled transverse are 2 zimmerman tissue fragments each measuring 0.3 cm. TS-1 Diane Faith, Grossing Kerrick Kleaner Operator/ Dr. Aaron Yo, Pathologist Dictated by Diane Faith MICROSCOPIC DESCRIPTION: The microscopic examination is performed, except in the case of Gross Only. Electronically Signed by Pathology Report verified by [facility] LETTY SIMMS Sign out Date: 09/19/2023 10:28 Performing Lab: [facility], [address] [place] [address] States Pathology Dept Disclaimer If ancillary studies were utilized, the following Laboratory Developed Test (LDT) disclaimer will apply: Under CLIA requirements, [facility] is qualified to perform high complexity testing. For all ancillary stains, positive and negative controls stain appropriately. Performance characteristics of immunohistochemical and chromogenic in-situ hybridization tests have been determined by [facility]. These tests are used for clinical purposes, They should not be regarded as investigational or for research. Normal [facility] ([place]) Absolute lymphocyte countOrd ered By: Dioni Ankur on 01-29-2023 Lymphocytes Auto (Unsp spec) [#/Vol] 1.42 10*3/uL 0.83-4.51 [facility] Basophil percentageOrdered B y: Gerardhien Pascual on 01-29-2023 Basophils/100 WBC (Bld) 0.4 % 0-1 [facility] Bilirubin [Mass/Vol] 0.80 mg/dL 0.20-1.00 [facility] Comment on above: For patients on eltr ombopag therapy, use of Dimension [place] TBIL is not recommended. Chloride [Moles/Vol] 92 mmol/L 98-107 [facility] Cholesterol [Mass/Vol] 207 mg/dL <200 [facility] Comment on above: <200 mg/dL Desirable 200-240 mg/dL Borderline >240 mg/dL High Risk Eosinophils/100 WBC (Bld) 2.6 % 0-5 [facility] Glucose [Mass/Vol] 106 mg/dL 74-106 [facility] Comment on above: Fasting Glucose resu lt from 100 to 125 mg/dL suggests IMPAIRED HOMEOSTASIS per A.D.A. criteria. Neutrophils (Bld) [#/Vol] 3.1 10*3/uL 2.0-7.7 [facility] Neutrophils/100 WBC (Bld) 57.1 % 47-70 [facility] Potassium [Moles/Vol] 4.1 mmol/L 3.5-5.1 [facility] Protein [Mass/Vol] 7.8 g/dL 6.4-8.2 [facility] Sodium [Moles/Vol] 126 mmol/L 136-145 [facility] Triglyceride [Mass/Vol] 107 mg/dL <199 [facility] Comment on above: The drugs N-Acetylcy steine and Metamizole may falsely depress this assay.Serum Triglycerides Reference Interval Normal <150 mg/dL Borderline high 150 - 199 mg/dL High 200 - 499 mg/dL Very High > or = 500 mg/dL WBC (Bld) [#/Vol] 5.4 10*3/uL 4.4-11.0 [facility] Blood erythrocytes count (nu mber/volume)Ordered By: [facility] 01-29-2023 RBC (Bld) [#/Vol] 3.77 10*6/uL 4.6-6.2 [facility] Blood hemoglobin measurement (mass/volume)Ordered By: Dioni Durandjm on 01-29-2023 Hemoglobin (Bld) [Mass/Vol] 12.3 g/dL 13.0-16.5 [facility] Blood lymphocytes/100 leukoc ytesOrdered By: Dioni Pascual on 01-29-2023 Lymphocytes/100 WBC (Bld) 26.3 % 19-41 [facility] Blood monocytes/100 leukocyt esOrdered By: [facility] [facility] Monocytes/100 WBC (Bld) 13.4 % 0-10 [facility] Blood platelet mean volumeOr dered By: [facility] [place]23 Platelet mean volume (Bld) [Entitic vol] 8.7 fL 6.2-12.0 [facility] Determination of erythrocyte mean corpuscular volume (MCV)Ordered By: Dioni Pascual on 01-29-2023 MCV (RBC) [Entitic vol] 92.6 fL 80-94 [facility] Hematocrit Auto (Bld) [Volum e fraction]Ordered By: [facility]23 Hematocrit (Bld) [Volume fraction] 34.9 % 40-54 [facility] Iron measurement (mass/mass) Ordered By: [facility] 01-[facility]23 Iron (Unsp spec) [Mass/Mass] 168 ug/dL 65-175 [facility] Laboratory - Chemistry and C hemistry - challengeOrdered By: Dioni Pascual on 01-29-2023 ALP [Catalytic activity/Vol] 91 U/L 45-117 [facility] ALT [Catalytic activity/Vol] 22 U/L 16-61 [facility] CO2 [Moles/Vol] 26.0 mmol/L 21.0-32.0 [facility] Cobalamin (Vitamin B12) [Mass/Vol] 722 pg/mL 211-911 [facility] Globulin (S) [Mass/Vol] 3.2 g/dL 2.2-4.2 [facility] Urea nitrogen/Creatinine [Mass ratio] 17.8 mg/mg 10-20 [facility] Laboratory - Hematology and Cell countsOrdered By: Dioni Pascual on 01-29-2023 Erythrocyte distribution width (RBC) [Entitic vol] 41.5 fL 35.1-43.9 [facility] Erythrocyte distribution width (RBC) [Ratio] 12.1 % 11.6-14.6 [facility] Immature granulocytes/100 WBC (Bld) 0.200 % 0.0-0.9 [facility] Comment on above: IG% - Immature Granu locytes (promyelocytes, myelocytes and metamyelocytes) > 1% indicates that a LEFT SHIFT is Present. MCH (RBC) [Entitic mass] 32.6 pg 27.0-32.0 [facility] Nucleated RBC/100 WBC (Bld) [Ratio] 0 % 0-5 [facility] MCHC Auto (RBC) [Mass/Vol]Or dered By: Dioni Pascual on 01-29-2023 MCHC (RBC) [Mass/Vol] 35.2 g/dL 32-36 [facility] No Panel InformationOrdered By: Dioni Pascual on 01-29-2023 Estimated GFR (MDRD) Amer 119 mL/min >60 [facility] Comment on above: GFR Calc Estimated GFR (MDRD) Non-Af Amer 98 mL/min >60 [facility] Comment on above: Non- GFR Calc Prostate Specific Antigen Screen 3.49 ng/mL 0.00-4.00 [facility] Comment on above: This test was perfor med using the TPSA assay method [facility] the[facility]. Values obtained with differentassay methods cannot be used interchangably.When changing PSA assays in the course of monitoring apatient, additional sequential testing should be carriedout to confirm baseline values. Thyroid Stimulating Hormone (TSH) 3.14 uIU/mL 0.358-3.74 [facility] Total Iron Binding Capacity 369 ug/dL 250-450 [facility] Vitamin D 25-Hydroxy 45.5 ng/mL [facility] Comment on above: Vitamin D 25(OH) Sta tus Range Deficiency <20 ng/mL (50nmol/L) Insufficiency 20 - 30 ng/mL (50 - 75 nmol/L) Sufficiency 30 - 100 ng/mL (75 - 250 nmol/L) Toxicity >100 ng/mL (>250 nmol/L) Platelets bldOrdered By: Gerard Pascual on 01-29-2023 Platelets (Bld) [#/Vol] 306 10*3/uL 150-450 [facility] Serum or plasma albumin maura urement (mass/volume)Ordered By: Dioni Pascual on 01-29-2023 Albumin [Mass/Vol] 4.6 g/dL 3.2-5.0 [facility] Serum or plasma albumin/glob ulin mass ratioOrdered By: Dioni Pascual on 01-29-2023 Albumin/Globulin [Mass ratio] 1.4 {ratio} 0.9-2.4 [facility] Serum or plasma calcium maura urement (mass/volume)Ordered By: Dioni Pascual on 01-29-2023 Calcium [Mass/Vol] 9.6 mg/dL 8.5-10.1 [facility] Serum or plasma cholesterol in HDL measurement (mass/volume)Ordered By: Dioni Pascual on 01-29-2023 Cholesterol in HDL [Mass/Vol] 73 mg/dL >40 [facility] Comment on above: The drugs N-Acetylcy steine and Metamizole may falsely depress this assay. Reference Range HDL <40 mg/dL Low HDL Cholesterol HDL >or= 60 mg/dL High HDL Cholesterol Serum or plasma cholesterol in VLDL measurement (mass/volume)Ordered By: Dioni Pascual on 01-29-2023 Cholesterol in VLDL [Mass/Vol] 21 mg/dL 5-40 [facility] Serum or plasma creatinine m easurement (mass/volume)Ordered By: [facility] 01-[facility]23 Creatinine [Mass/Vol] 0.84 mg/dL 0.70-1.30 [facility] Comment on above: The validity of the calculated GFR & GFRAA in patients over 70 years has not been determined. Clinical correlation is essential. Serum or plasma folate measu rement (mass/volume)Ordered By: [facility] 01-[facility]23 Folate [Mass/Vol] 42.00 ng/mL 3.1-55.4 [facility] Serum or plasma iron saturat ion measurement (mass fraction)Ordered By: [facility] on 01-29-2023 Iron saturation [Mass fraction] 45.5 % 15.0-55.0 [facility] Serum or plasma low density lipoprotein (LDL) cholesterol measurement (mass/volume)Ordered By: [facility] on 01-29-2023 Cholesterol in LDL [Mass/Vol] 113 mg/dL 0-130 [facility] Serum or plasma urea nitroge n measurement (mass/volume)Ordered By: [facility] on 01-29-2023 Urea nitrogen [Mass/Vol] 15 mg/dL 7-18 [facility] Thin prep Papanicolaou smear with manual screeningOrdered By: [facility] on 01-29-2023 Thin prep Papanicolaou smear with manual screening 14 U/L 15-37 [facility] Thin prep Papanicolaou smear with manual screening 8 5-15 [facility] Whole blood hemoglobin A1c/t otal hemoglobin ratio (mass fraction)Ordered By: [facility] 01-[facility]23 HbA1c (Bld) [Mass fraction] 5.2 % 3.8-5.6 [facility] Comment on above: Normal < 5.7 % Predi abetic 5.7 - 6.4 % Diabetic >or= 6.5 % Please note range changes. CBC AND DIFFERENTIALon 11-14 Basophils (Bld) [#/Vol] 0.00 10*3/uL Normal 0.00 - 0.10 [facility] Comment on above: Performed By: #### C BCDF #### [place] [address] Basophils/100 WBC (Bld) 0.5 % Normal 0.0 - 2.0 [facility] Comment on above: Performed By: #### C BCDF #### [address] [address] Eosinophils (Bld) [#/Vol] 0.10 10*3/uL Normal 0.00 - 0.70 [facility] Comment on above: Performed By: #### C BCDF #### [address] [address] Eosinophils/100 WBC (Bld) 2.7 % Normal 0.0 - 6.0 [facility] Comment on above: Performed By: #### C BCDF #### [address] [address] Erythrocyte distribution width (RBC) [Ratio] 13.1 % Normal 11.5 - 14.5 [facility] Comment on above: Performed By: #### C BCDF #### [address] [address] Hematocrit (Bld) [Volume fraction] 39.4 % Low 41.0 - 52.0 [facility] Comment on above: Performed By: #### C BCDF #### [address] [address] Hemoglobin (Bld) [Mass/Vol] 13.2 g/dL Low 13.5 - 17.5 [facility] Comment on above: Performed By: #### C BCDF #### [address] [address] Lymphocytes (Bld) [#/Vol] 1.00 10*3/uL Low 1.20 - 4.80 [facility] Comment on above: Performed By: #### C BCDF #### [address] [address] Lymphocytes/100 WBC (Bld) 21.2 % Normal 13.0 - 44.0 [facility] Comment on above: Performed By: #### C BCDF #### [address] [address] MCHC (RBC) [Mass/Vol] 33.4 g/dL Normal 32.0 - 36.0 [facility] Comment on above: Performed By: #### C BCDF #### [address] [address] MCV (RBC) [Entitic vol] 94 fL Normal 80 - 100 [facility] Comment on above: Performed By: #### C BCDF #### [address] [address] Monocytes (Bld) [#/Vol] 0.60 10*3/uL Normal 0.10 - 1.00 [facility] Comment on above: Performed By: #### C BCDF #### [address] [address] Monocytes/100 WBC (Bld) 11.4 % Normal 2.0 - 10.0 [facility] Comment on above: Performed By: #### C BCDF #### [address] [address] Neutrophils (Bld) [#/Vol] 3.10 10*3/uL Normal 1.20 - 7.70 [facility] Comment on above: Result Comment: Perc ent differential counts (%) should be interpreted in the context of the absolute cell counts (cells/L). Performed By: #### C BCDF #### [address] [address] Neutrophils/100 WBC (Bld) 64.2 % Normal 40.0 - 80.0 [facility] Comment on above: Performed By: #### C BCDF #### [address] [address] Platelets (Bld) [#/Vol] 262 10*3/uL Normal 150 - 450 [facility] Comment on above: Performed By: #### C BCDF #### [address] [address] RBC 4.22 x10E12/L Low 4.50 - 5.90 [facility] Comment on above: Performed By: #### C BCDF #### [address] [address] WBC (Bld) [#/Vol] 4.9 10*3/uL Normal 4.4 - 11.3 [facility] Comment on above: Performed By: #### C BCDF #### [address] [address] COMPREHENSIVE PANELon 2021 Albumin [Mass/Vol] 4.8 g/dL Normal 3.4 - 5.0 [facility] Comment on above: Performed By: #### C MP #### [address] [address] ALP [Catalytic activity/Vol] 59 U/L Normal 33 - 136 [facility] Comment on above: Performed By: #### C MP #### [address] [address] ALT [Catalytic activity/Vol] 29 U/L Normal 10 - 52 [facility] Comment on above: Result Comment: Yoly ents treated with Sulfasalazine may generate falsely decreased results for ALT. Performed By: #### C MP #### [address] [address] Anion gap [Moles/Vol] 11 mmol/L Normal 10 - 20 [facility] Comment on above: Performed By: #### C MP #### [address] [address] AST [Catalytic activity/Vol] 29 U/L Normal 9 - 39 [facility] Comment on above: Performed By: #### C MP #### [address] [address] Bilirubin [Mass/Vol] 0.7 mg/dL Normal 0.0 - 1.2 [facility] Comment on above: Performed By: #### C MP #### [address] [address] Calcium [Mass/Vol] 9.6 mg/dL Normal 8.6 - 10.3 [facility] Comment on above: Performed By: #### C MP #### [address] [address] Chloride [Moles/Vol] 98 mmol/L Normal 98 - 107 [facility] Comment on above: Performed By: #### C MP #### [address] [address] Creatinine [Mass/Vol] 0.75 mg/dL Normal 0.50 - 1.30 [facility] Comment on above: Performed By: #### C MP #### [address] [address] eGFR MALE >90 Normal >90 [facility] Comment on above: Result Comment: CALC ULATIONS OF ESTIMATED GFR ARE PERFORMED USING THE 2020 CKD-EPI STUDY REFIT EQUATION WITHOUT THE RACE VARIABLE FOR THE IDMS-TRACEABLE CREATININE METHODS. https://jasn.asnjournals.org/content/early/ASN.965947 2630 Performed By: #### C MP #### [address] [address] Glucose [Mass/Vol] 100 mg/dL High 74 - 99 [facility] Comment on above: Performed By: #### C MP #### [address] [address] HCO3 (Bld) [Moles/Vol] 28 mmol/L Normal 21 - 32 [facility] Comment on above: Performed By: #### C MP #### [address] [address] Potassium [Moles/Vol] 4.4 mmol/L Normal 3.5 - 5.3 [facility] Comment on above: Performed By: #### C MP #### [address] [address] Protein [Mass/Vol] 7.1 g/dL Normal 6.4 - 8.2 [facility] Comment on above: Performed By: #### C MP #### [address] [address] Sodium [Moles/Vol] 133 mmol/L Low 136 - 145 [facility] Comment on above: Performed By: #### C MP #### [address] [address] Urea nitrogen [Mass/Vol] 9 mg/dL Normal 6 - 23 [facility] Comment on above: Performed By: #### C MP #### [address] [address] HEMOGLOBIN A1Con 11-14-2021 Glucose [Mass/Vol] 108 mg/dL Normal [facility] Comment on above: Performed By: #### H BA1E #### [address] [address] HbA1c (Bld) [Mass fraction] 5.4 % Normal [facility] Comment on above: Result Comment: Diag nosis of Diabetes-Adults Non-Diabetic: < or = 5.6% Increased risk for developing diabetes: 5.7-6.4% Diagnostic of diabetes: > or = 6.5% . Monitoring of Diabetes Age (y) Therapeutic Goal (%) Adults: >18 <7.0 Pediatrics: 13-18 <7.5 7-12 <8.0 0- 6 7.5-8.5 [place] [employer]. Diabetes Care 33(S1), May 2009. Performed By: #### H BA1E #### [address] [address] LIPID PANEL (CORONARY RISK 2 )on 11-14-2021 Cholesterol [Mass/Vol] 210 mg/dL High 0 - 199 [facility] Comment on above: Result Comment: . AGE DESIRABLE BORDERLINE HIGH HIGH 0-19 Y 0 - 169 170 - 199 >/= 200 20-24 Y 0 - 189 190 - 224 >/= 225 >24 Y 0 - 199 200 - 239 >/= 240 All ranges are based on fasting samples. Specific therapeutic targets will vary based on patient-specific cardiac risk. . Pediatric guidelines reference:Pediatrics 2011, 128(S5). Adult guidelines reference: NCEP ATPIII Guidelines, JEREMIAS 2001, 258:2486-97 . Venipuncture immediately after or during the administration of Metamizole may lead to falsely low results. Testing should be performed immediately prior to Metamizole dosing. Performed By: #### L IPID #### [address] [address] Cholesterol in HDL [Mass/Vol] 81.0 mg/dL Normal [facility] Comment on above: Result Comment: . AGE VERY LOW LOW NORMAL HIGH 0-19 Y < 35 < 40 40-45 ---- 20-24 Y ---- < 40 >45 ---- >24 Y ---- < 40 40-60 >60 . Performed By: #### L IPID #### [address] [address] Cholesterol in LDL [Mass/Vol] 114 mg/dL High 0 - 99 [facility] Comment on above: Result Comment: . NEAR BORD AGE DESIRABLE OPTIMAL HIGH HIGH VERY HIGH 0-19 Y 0 - 109 --- 110-129 >/= 130 ---- 20-24 Y 0 - 119 --- 120-159 >/= 160 ---- >24 Y 0 - 99 100-129 130-159 160-189 >/=190 . Performed By: #### L IPID #### [address] [address] Cholesterol in VLDL [Mass/Vol] 15 mg/dL Normal 0 - 40 [facility] Comment on above: Performed By: #### L IPID #### [address] [address] Cholesterol.total/Cho lesterol in HDL [Mass ratio] 2.6 {ratio} Normal [facility] Comment on above: Result Comment: REF VALUES DESIRABLE < 3.4 HIGH RISK > 5.0 Performed By: #### L IPID #### [address] [address] Triglyceride [Mass/Vol] 73 mg/dL Normal 0 - 149 [facility] Comment on above: Result Comment: . AGE DESIRABLE BORDERLINE HIGH HIGH VERY HIGH 0 D-90 D 19 - 174 ---- ---- ---- 91 D- 9 Y 0 - 74 75 - 99 >/= 100 ---- 10-19 Y 0 - 89 90 - 129 >/= 130 ---- 20-24 Y 0 - 114 115 - 149 >/= 150 ---- >24 Y 0 - 149 150 - 199 200- 499 >/= 500 . Venipuncture immediately after or during the administration of Metamizole may lead to falsely low results. Testing should be performed immediately prior to Metamizole dosing. Performed By: #### L IPID #### [address] [address] PROSTATE SPECIFIC AGon 11-14 Prostate specific Ag [Mass/Vol] 2.32 ng/mL Normal 0.00 - 4.00 [facility] Comment on above: Result Comment: The FDA requires that the method used for PSA assay be reported to the physician. Values obtained with different assay methods must not be used interchangeably. This test was performed at [facility] using the NeXplore PSA assay is a two-site immunoenzymatic sandwich assay. The assay is approved for measurement of prostate-specific antigen (PSA)in serum and may be used in conjunction with a digital rectal examination in men 50 years and older as an aid in detection of prostate cancer. 5-Lmrej-kixtslfuh inhibitors (e.g. Proscar, Finasteride, Avodart, Dutasteride and Taylor) for the treatment of BPH have been shown to lower PSA levels by an average of 50% after 6 months of treatment. Performed By: #### P SA #### [address] [address] TSHon 11-14-2021 TSH Qn 2.28 m[IU]/L Normal 0.44 - 3.98 [facility] Comment on above: Result Comment: TSH testing is performed using different testing methodology at [facility] than at other [facility]. Direct result comparisons should only be made within the same method. Performed By: #### T SH2 #### [address] [address] VITAMIN D, 25-HYDROXYon 11-03 VITAMIN D, 25-HYDROXY 44 ng/mL Normal [facility] Comment on above: Result Comment: . DEFICIENCY: < 20 NG/ML INSUFFICIENCY: 20-29 NG/ML SUFFICIENCY: 30-100 NG/ML THIS ASSAY ACCURATELY QUANTIFIES THE SUM OF VITAMIN D3, 25-HYDROXY AND VIT D2,25-HYDROXY. Performed By: #### V TDOH #### [address] [address] Hemoglobin A1con 01-30-2021 Glucose [Mass/Vol] 111 mg/dL Normal [facility] Comment on above: Performed By: #### H BA1C #### [facility] Routine Lab [address] [place], [place] [id number] HbA1c (Bld) [Mass fraction] 5.5 % Normal 4.3-5.6 [facility] Comment on above: Performed By: #### H BA1C #### [facility] Routine Lab [address] [place], [place] [id number] CBCon 10-15-2020 Erythrocyte distribution width (RBC) [Ratio] 12.4 % Normal 11.5 - 14.5 [facility] Comment on above: Order Comment: Phys Name Dioni Pascual MD Phys Address [address] [place] [address] Performed By: #### C BC #### [address] [address] Hematocrit (Bld) [Volume fraction] 37.0 % Low 41.0 - 52.0 [facility] Comment on above: Order Comment: Phys Name Dioni Pascual MD Phys Address [address] [place] [address] Performed By: #### C BC #### [address] [address] Hemoglobin (Bld) [Mass/Vol] 12.9 g/dL Low 13.5 - 17.5 [facility] Comment on above: Order Comment: Phys Name Dioni Pascual MD Phys Address [address] [place] [address] Performed By: #### C BC #### [address] [address] MCHC (RBC) [Mass/Vol] 35.0 g/dL Normal 32.0 - 36.0 [facility] Comment on above: Order Comment: Phys Name Dioni Pascual MD Phys Address [address] [place] [address] [place] Performed By: #### C BC #### [address] [address] MCV (RBC) [Entitic vol] 94 fL Normal 80 - 100 [facility] Comment on above: Order Comment: Phys Name Dioni Pascual MD Phys Address [address] [place] [address] Performed By: #### C BC #### [address] [address] Platelets (Bld) [#/Vol] 242 10*3/uL Normal 150 - 450 [facility] Comment on above: Order Comment: Phys Name Dioni Pascual MD Phys Address [address] [place] [address] Performed By: #### C BC #### [address] [address] RBC 3.95 x10E12/L Low 4.50 - 5.90 [facility] Comment on above: Order Comment: Phys Name Dioni Pascual MD Phys Address [address] [place] [address] Performed By: #### C BC #### [address] [address] WBC (Bld) [#/Vol] 4.7 10*3/uL Normal 4.4 - 11.3 [facility] Comment on above: Order Comment: Phys Name Dioni Pascual MD Phys Address [address] [place] [address] Performed By: #### C BC #### [address] [address] COMPREHENSIVE PANELon 2020 Albumin [Mass/Vol] 4.4 g/dL Normal 3.4 - 5.0 [facility] Comment on above: Order Comment: Phys Name Dioni Pascual MD Phys Address [address] [place] [address] Performed By: #### C MP #### [address] [address] ALP [Catalytic activity/Vol] 57 U/L Normal 33 - 136 [facility] Comment on above: Order Comment: Phys Name Dioni Pascual MD Phys Address [address] [place] [address] Performed By: #### C MP #### [address] [address] ALT [Catalytic activity/Vol] 12 U/L Normal 10 - 52 [facility] Comment on above: Order Comment: Phys Jennifer Pascual MD Phys Address [address] [place] [address] Result Comment: Yoly ents treated with Sulfasalazine may generate falsely decreased results for ALT. Performed By: #### C MP #### [address] [address] Anion gap [Moles/Vol] 13 mmol/L Normal 10 - 20 [facility] Comment on above: Order Comment: Phys Name Dioni Pascual MD Phys Address [address] [place] [address] Performed By: #### C MP #### [address] [address] AST [Catalytic activity/Vol] 17 U/L Normal 9 - 39 [facility] Comment on above: Order Comment: Karan Pascual MD Phys Address [address] [place] [address] Performed By: #### C MP #### [address] [address] Bilirubin [Mass/Vol] 0.6 mg/dL Normal 0.0 - 1.2 [facility] Comment on above: Order Comment: Phys Jennifer Pascual MD Phys Address [address] [place] [address] Performed By: #### C MP #### [address] [address] Calcium [Mass/Vol] 8.9 mg/dL Normal 8.6 - 10.3 [facility] Comment on above: Order Comment: Karan Pascual MD Phys Address [address] [place] [address] Performed By: #### C MP #### [address] [address] Chloride [Moles/Vol] 103 mmol/L Normal 98 - 107 [facility] Comment on above: Order Comment: Karan Pascual MD Phys Address [address] [place] [address] Performed By: #### C MP #### [address] [address] Creatinine [Mass/Vol] 0.73 mg/dL Normal 0.50 - 1.30 [facility] Comment on above: Order Comment: Karan Pascual MD Phys Address [address] [place] [address] Performed By: #### C MP #### [address] [address] GFR- AM. >60 Normal >60 [facility] Comment on above: Order Comment: Karan Pascual MD Phys Address [address] [place] [address] Result Comment: CALC ULATIONS OF ESTIMATED GFR ARE PERFORMED USING THE MDRD STUDY EQUATION FOR THE IDMS-TRACEABLE CREATININE METHODS. CLIN CHEM 2007;53:766-72 Performed By: #### C MP #### [address] [address] GFR-NON AM. >60 Normal >60 [facility] Comment on above: Order Comment: Phys Jennifer Pascual MD Phys Address [address] [place] [address] Performed By: #### C MP #### [address] [address] Glucose [Mass/Vol] 99 mg/dL Normal 74 - 99 [facility] Comment on above: Order Comment: Phys Name Dioni Pascual MD Phys Address [address] [place] [address] Performed By: #### C MP #### [address] [address] HCO3 (Bld) [Moles/Vol] 23 mmol/L Normal 21 - 32 [facility] Comment on above: Order Comment: Phys Name Dioni Pascual MD Phys Address [address] [place] [address] Performed By: #### C MP #### [address] [address] Potassium [Moles/Vol] 4.0 mmol/L Normal 3.5 - 5.3 [facility] Comment on above: Order Comment: Phys Jennifer Pascual MD Phys Address [address] [place] [address] Performed By: #### C MP #### [address] [address] Protein [Mass/Vol] 6.7 g/dL Normal 6.4 - 8.2 [facility] Comment on above: Order Comment: Phys Jennifer Pascual MD Phys Address [address] [place] [address] Performed By: #### C MP #### [address] [address] Sodium [Moles/Vol] 135 mmol/L Low 136 - 145 [facility] Comment on above: Order Comment: Phys Name Dioni Pascual MD Phys Address [address] [place] [address] Performed By: #### C MP #### [address] [address] Urea nitrogen [Mass/Vol] 10 mg/dL Normal 6 - 23 [facility] Comment on above: Order Comment: Phys Name Dioni Pascual MD Phys Address [address] [place] [address] Performed By: #### C MP #### [address] [address] CREATINE KINASEon 10-15-2020 CK [Catalytic activity/Vol] 70 U/L Normal 0 - 325 [facility] Comment on above: Order Comment: Phys Name Dioni Pascual MD Phys Address [address] [place] [address] Performed By: #### C K #### [address] [address] LIPID PANEL (CORONARY RISK 2 )on 10-15-2020 Cholesterol [Mass/Vol] 171 mg/dL Normal 0 - 199 [facility] Comment on above: Order Comment: Phys Name Dioni Pascual MD Phys Address [address] [place] [address] Result Comment: . AGE DESIRABLE BORDERLINE HIGH HIGH 0-19 Y 0 - 169 170 - 199 >/= 200 20-24 Y 0 - 189 190 - 224 >/= 225 >24 Y 0 - 199 200 - 239 >/= 240 All ranges are based on fasting samples. Specific therapeutic targets will vary based on patient-specific cardiac risk. . Pediatric guidelines reference:Pediatrics 2011, 128(S5). Adult guidelines reference: NCEP ATPIII Guidelines, JEREMIAS 2001, 258:2486-97 . Venipuncture immediately after or during the administration of Metamizole may lead to falsely low results. Testing should be performed immediately prior to Metamizole dosing. Performed By: #### L IPID #### [address] [address] Cholesterol in HDL [Mass/Vol] 50.0 mg/dL Normal [facility] Comment on above: Order Comment: Karan Pascual MD Phys Address [address] [place] [address] Result Comment: . AGE VERY LOW LOW NORMAL HIGH 0-19 Y < 35 < 40 40-45 ---- 20-24 Y ---- < 40 >45 ---- >24 Y ---- < 40 40-60 >60 . Performed By: #### L IPID #### [address] [address] Cholesterol in LDL [Mass/Vol] 102 mg/dL High 0 - 99 [facility] Comment on above: Order Comment: Karan Pascual MD Phys Address [address] [place] [address] Result Comment: . NEAR BORD AGE DESIRABLE OPTIMAL HIGH HIGH VERY HIGH 0-19 Y 0 - 109 --- 110-129 >/= 130 ---- 20-24 Y 0 - 119 --- 120-159 >/= 160 ---- >24 Y 0 - 99 100-129 130-159 160-189 >/=190 . Performed By: #### L IPID #### [address] [address] Cholesterol in VLDL [Mass/Vol] 19 mg/dL Normal 0 - 40 [facility] Comment on above: Order Comment: Karan Pascual MD Phys Address [address] [place] [address] Performed By: #### L IPID #### [address] [address] Cholesterol.total/Cho lesterol in HDL [Mass ratio] 3.4 {ratio} Normal [facility] Comment on above: Order Comment: Karan Pascual MD Phys Address [address] [place], [place] [id number] [place] [address] Result Comment: REF VALUES DESIRABLE < 3.4 HIGH RISK > 5.0 Performed By: #### L IPID #### [address] [address] Triglyceride [Mass/Vol] 96 mg/dL Normal 0 - 149 [facility] Comment on above: Order Comment: Karan Pascual MD Phys Address [address] [place] [address] Result Comment: . AGE DESIRABLE BORDERLINE HIGH HIGH VERY HIGH 0 D-90 D 19 - 174 ---- ---- ---- 91 D- 9 Y 0 - 74 75 - 99 >/= 100 ---- 10-19 Y 0 - 89 90 - 129 >/= 130 ---- 20-24 Y 0 - 114 115 - 149 >/= 150 ---- >24 Y 0 - 149 150 - 199 200- 499 >/= 500 . Venipuncture immediately after or during the administration of Metamizole may lead to falsely low results. Testing should be performed immediately prior to Metamizole dosing. Performed By: #### L IPID #### [address] [address] PROSTATE SPECIFIC AGon 10-15 Prostate specific Ag [Mass/Vol] 1.82 ng/mL Normal 0.00 - 4.00 [facility] Comment on above: Order Comment: Karan Pascual MD Phys Address [address] [place] [address] Result Comment: The FDA requires that the method used for PSA assay be reported to the physician. Values obtained with different assay methods must not be used interchangeably. This test was performed at [facility] using the NeXplore PSA assay is a two-site immunoenzymatic sandwich assay. The assay is approved for measurement of prostate-specific antigen (PSA)in serum and may be used in conjunction with a digital rectal examination in men 50 years and older as an aid in detection of prostate cancer. 6-Zhsos-yngxomxpa inhibitors (e.g. Proscar, Finasteride, Avodart, Dutasteride and Taylor) for the treatment of BPH have been shown to lower PSA levels by an average of 50% after 6 months of treatment. Performed By: #### P SA #### [address] [address] TSHon 10-15-2020 TSH Qn 1.35 m[IU]/L Normal 0.44 - 3.98 [facility] Comment on above: Order Comment: Phys Name Dioni Pascual MD Phys Address [address] [place] [address] Result Comment: TSH testing is performed using different testing methodology at [facility] than at [facility]. Direct result comparisons should only be made within the same method. Performed By: #### T SH2 #### [address] [address] Auto Diffon 06-29-2017 Basophils Auto #/vol (Bld) 0.0 E3/mcL Normal 0.0-0.2 [facility] Comment on above: Order Comment: Order Added by Discern Expert. Performed By: #### 2 [id number] ####PERCY [address] [place] [address] Basophils/100 WBC Auto (Bld) 0.5 % Normal 0.0-2.0 [facility] Comment on above: Order Comment: Order Added by Discern Expert. Performed By: #### 2 [id number] ####PERCY [address] [place] [address] Eos Absolute 0.4 E3/mcL Normal 0.0-0.7 [facility] Comment on above: Order Comment: Order Added by Discern Expert. Performed By: #### 2 [id number] ####PERCY [address]fuMfnw[address]954 [place] [address] Eosinophils/100 leukocytes 4.8 % Normal 0.0-11.0 [facility] Comment on above: Order Comment: Order Added by Discern Expert. Performed By: #### 2 [id number] ####PERCY [address] [place] [address] Lymphocytes 2.0 E3/mcL Normal 1.2-3.4 [facility] Comment on above: Order Comment: Order Added by Discern Expert. Performed By: #### 2 861530 ####PERCY [address] [place] [address] Lymphocytes/100 leukocytes 26.1 % Normal 20.0-55.0 [facility] Comment on above: Order Comment: Order Added by Discern Expert. Performed By: #### 2 [id number] ####PERCY [address]ts[address]ukt[address] [place] [address] Hancock Absolute 0.9 E3/mcL High 0.0-0.7 [facility] Comment on above: Order Comment: Order Added by Discern Expert. Performed By: #### 2 139032 ####PERCY [address] [place] [address] Monocytes/100 leukocytes 11.5 % High 0.0-10.0 [facility] Comment on above: Order Comment: Order Added by Discern Expert. Performed By: #### 2 [id number] ####PERCY [address] [place] [address] Neutro Absolute 4.3 E3/mcL Normal 1.4-6.5 [facility] Comment on above: Order Comment: Order Added by Discern Expert. Performed By: #### 2 [id number] ####PERCY [address]QijHwfb4760 [place] [address] Neutro Auto 57.1 % Normal 37.0-75.0 [facility] Comment on above: Order Comment: Order Added by Discern Expert. Performed By: #### 2 025146 ####PERCY [address] [place] [address] CBC w/ Auto Diffon 02-24-201 8 Erythrocyte distribution width Auto Ratio (RBC) 13.0 % Normal 11.5-14.5 [facility] Comment on above: Performed By: #### 2 [id number] ####PERCY PfnOopx[address] [place] [address] Erythrocytes (RBC) 4.59 E6/mcL Normal 3.90-6.10 [facility] Comment on above: Performed By: #### 2 809518 ####PERCYDinesh [address]sp[address] [place] [address] Hematocrit (HCT) 43.5 % Normal 42.0-52.0 [facility] Comment on above: Performed By: #### 2 [id number] ####PERCYDinesh [address]EbuRprj[address] [place] [address] Hemoglobin mass conc (Bld) 15.0 g/dL Normal 13.5-18.0 [facility] Comment on above: Performed By: #### 2 038981 ####PERCYDinesh OrtegaOfgWzfx4789 [place] [address] MCH 32.7 pg High 27.0-31.0 [facility] Comment on above: Performed By: #### 2 [id number] ####PERCYDinesh [address]OzhLtxa[address] [place] [address] MCHC mass conc (RBC) 34.5 g/dL Normal 33.0-37.0 [facility] Comment on above: Performed By: #### 2 289420 ####PERCYDinesh [address]tegaUakAynf2573 [place] [address] MCV 94.7 fL Normal 78.0-100.0 [facility] Comment on above: Performed By: #### 2 [id number] ####PERCYDinesh [address]tegaVsvAdez[address]690 [place] [address] Platelet mean volume (PMV) 6.7 fL Low 7.4-11.0 [facility] Comment on above: Performed By: #### 2 637483 ####PERCYDinesh [address]SzvEpah9227 [place] [address] Platelets 343 E3/mcL Normal 130-400 [facility] Comment on above: Performed By: #### 2 831156 ####PERCY [address] [place] [address] WBC (Leukocytes) 7.6 E3/mcL Normal 3.6-11.0 [facility] Comment on above: Performed By: #### 2 366773 ####PERCY [address] [place] [address] CMPon 06-29-2017 Alanine aminotransferase (ALT) 17 Int._Unit/L Normal 10-40 [facility] Comment on above: Performed By: #### 2 014219 ####PERCY [address] [place] [address] Albumin 5.1 g/dL High 3.2-5.0 [facility] Comment on above: Performed By: #### 2 655964 ####PERCY [address] [place] [address] Albumin/Globulin Ratio 2.0 {ratio} High 1.1-1.9 [facility] Comment on above: Performed By: #### 2 967605 ####PERCY [address] [place] [address] Alk Phos 56 Int._Unit/L Normal 42-121 [facility] Comment on above: Performed By: #### 2 794793 ####PERCY [address]XxmGccd3[address] [place] [address] Aspartate aminotransferase (AST) 23 Int._Unit/L Normal 10-42 [facility] Comment on above: Performed By: #### 2 079407 ####PERCY rOtegaSkgFrjf3365 [place] [address] Bili Total 0.7 mg/dL Normal 0.2-1.0 [facility] Comment on above: Performed By: #### 2 578840 ####PERCY AhkJvhv2643 [place] [address] BUN/Creatinine Ratio 18.3 ratio Normal 5.4-30.0 [facility] Comment on above: Performed By: #### 2 275252 ####PERCY EwcWasd[address]206 [place] [address] Creatinine 0.6 mg/dL Normal 0.6-1.3 [facility] Comment on above: Performed By: #### 2 803270 ####PERCY [address]QmvWqow[address]81 [place] [address] Globulin 2.6 g/dL Normal 2.0-4.0 [facility] Comment on above: Performed By: #### 2 096141 ####PERCY [address] [place] [address] Protein 7.7 g/dL Normal 6.4-8.3 [facility] Comment on above: Performed By: #### 2 186004 ####PERCY [address]teGiwc[address]32 [place] [address] Urea nitrogen 11 mg/dL Normal 7-18 [facility] Comment on above: Performed By: #### 2 854386 ####PERCY FxjQtlc5458 [place] [address] Calcium 9.7 mg/dL Normal 8.4-10.2 [facility] Comment on above: Performed By: #### 2 200961 ####PERCY SogWxnq1527 [place] [address] Chloride 96 mmol/L Low 98-107 [facility] Comment on above: Performed By: #### 2 116224 ####PERCY YbvNdiq1560 [place] [address] CO2 28.2 mmol/L Normal 24.0-30.0 [facility] Comment on above: Performed By: #### 2 762766 ####PERCY [address]zVcdx2743 [place] [address] Glucose mass conc 115 mg/dL High 70-99 [facility] Comment on above: Performed By: #### 2 546724 ####PERCY RdxEryw4911 [place] [address] Potassium molar conc 3.8 mmol/L Normal 3.5-5.1 [facility] Comment on above: Performed By: #### 2 888964 ####PERCY M[address]Yybz3640 [place] [address] Sodium 133 mmol/L Low 136-145 [facility] Comment on above: Performed By: #### 2 539993 ####PERCY InrIpce[address] [place] [address] ErgO1kyl 06-29-2017 Hemoglobin A1c/Hemoglobin.total mass fraction (Bld) 5.4 % Normal 4.0-6.3 [facility] Comment on above: Performed By: #### 3 [id number] ####PERCY Chemistry Manual [address] [place] [address] Lipid Profileon 06-29-2017 Cholesterol 206 mg/dL High 50-200 [facility] Comment on above: Result Comment: TOTA L CHOLEESTEROL: <200 NORMAL 200 - 239 BORDERLINE HIGH >240 HIGH Performed By: #### 3 [id number] ####PERCY KpdCpku8944 [place] [address] Cholesterol in VLDL mass conc 10 mg/dL Normal [facility] Comment on above: Performed By: #### 3 [id number] ####PERCY [address]HpiQbqp3771 [place] [address] HDL Cholesterol 63 mg/dL Normal >=41 [facility] Comment on above: Performed By: #### 3 [id number] ####PERCY [address]SutSwhy[address] [place] [address] LDL Cholesterol 133 mg/dL High 0-130 [facility] Comment on above: Result Comment: <100 [id number] NEAR / ABOVE VDUSRED549- 159 BORDERLINE [id number] HIGH>190 VERY HIGHCALC LDL NOT VALID WHEN TRIGLYCERIDE IS >400 MG/DL Performed By: #### 3 [id number] ####PERCY [address]HjiUrzr0528 [place] [address] Triglyceride 51 mg/dL Normal 35-150 [facility] Comment on above: Result Comment: <150 [id number] BORDERLINE [id number] HIGH>500 VERY HIGH Performed By: #### 3 [id number] ####PERCY [address]qUpbj[address]17 [place] [address] eGFRon 06-29-2017 eGFR (non-black) mL/min/{1.73_m2} Normal [facility] Comment on above: Order Comment: Order added by Discern Expert. Performed By: #### 1 [id number] ####PERCY [address]tegaPvuYwiy[address]345 [place] [address] Encounters Encounter Date Encounter Type Care Provider Facility Start: 03-15-2025 End: 03-15-2025 ambulatory [facility] Facility:[facility] Start: 12-17-2024 End: 12-17-[address] Dioni Pascual MD Work Phone: -Laboratory Specimen Start: 12-17-2024 End: 12-17-[address] Gilles Johnston MD -Laboratory Specimen Work Phone: Start: 12-17-2024 End: 12-17-2024 ambulatory Gilles Johnston Facility:[facility] Start: 11-19-2024 End: 11-19-[address] Dioni Pascual MD Work Phone: [facility] Start: 11-19-2024 End: 11-19-[address] Gilles Johnston MD [facility] Work Phone: Start: 11-19-2024 End: 11-19-2024 ambulatory Gilles Johnston Facility:[facility] Start: 10-19-2024 End: 10-19-2024 ambulatory DIONI PERRY [facility] Start: 10-19-2024 End: 10-19-2024 ambulatory DIONI PERRY [facility] Start: 07-30-2024 ambulatory DIONI PERRY [facility] Start: 07-03-2024 End: 07-03-2024 [facility] Start: 06-12-2024 End: 06-12-2024 [facility] Start: 06-10-2024 ambulatory DIONI PERRY [facility] Start: 05-30-2024 End: 05-30-2024 [facility] Start: 12-06-2023 End: 12-06-2023 [facility] Start: 10-12-2023 End: 10-12-2023 ambulatory DIONI [facility] Start: 07-09-2023 End: 07-13-2023 ambulatory [facility] Start: 03-19-2023 End: 03-19-2023 ambulatory [facility] Work Phone: Start: 03-19-2023 End: 03-19-2023 Patient encounter procedure [facility], Specimen Work Phone: Start: 01-29-2023 End: 01-29-2023 Patient encounter procedure [facility] Work Phone: Start: 01-18-2022 End: 01-19-2022 ambulatory [facility] Facility:[facility] Start: 06-29-2017 End: 06-30-2017 Ambulatory [facility] Facility:[facility] Procedures Date Procedure Procedure Detail Performing Clinician Start: 11-19-2024 MRI of pelvis with contrast Dr. Dioni Pascual MD Work Phone: Payers Date Payer Category Payer Self-pay [id number] 2017 Unknown 1960 Unknown [id number] 2.16.8 [id number] 1960 Unknown [id number] 2.16. [id number] 1960 Unknown [id number] 2.16.8 40.1.179213.3.579.2.1245 1960 Unknown [id number] 2.16.8 40.1.096557.3.579.2.651 1960 Unknown [id number] 2.16.8 40.1.404722.3.579.2.651 1960 Unknown [id number] 2.16.8 40.1.098453.3.579.2.651 1960 Unknown [id number] 2.16.8 40.1.498949.3.579.2.651 1960 Unknown [id number] 2.16.8 40.1.362615.3.579.2.651 1960 Unknown [id number] 2.16.8 40.1.666440.3.579.2.651 1960 Unknown [id number] 2.16.8 40.1.932059.3.579.2.651 1960 Unknown [id number] 2.16.8 40.1.575673.3.579.2.651 1960 Unknown [id number] 2.16.8 40.1.021641.3.579.2.651 1959 Unknown [id number] Unknown [id number] Unknown [id number] 2.16.8 40.1.655042.3.579.2.462 Unknown [id number] 2.16.8 40.1.869056.3.579.2.462 Unknown [id number] 2.16.8 40.1.639560.3.579.2.462 Unknown [id number] 2.16.8 40.1.682986.3.579.2.462 Social History Date Type Detail Facility Tobacco smoking stat [facility] Unknown if ever smoked [facility] Work Phone: Start: 1960 Sex Assigned At Male [facility] Tobacco smoking stat [facility] Unknown if ever smoked [facility] Work Phone: Evaluation note Note Date & Type Note Facility Evaluation note No assessment information availa ble [facility] Work Phone: Reason for referral (narrative) Note Date & Type Note Facility Reason for referral (narrative) No reason for referral information available [facility] Work Phone: Summary Purpose Family History No Family History Records FoundNo Family History Records FoundNo Family History Records FoundNo Family History Records FoundNo Family History Records FoundNo Family History Records FoundNo Family History Records FoundNo Family History Records FoundNo Family History Records FoundNo Family History Records FoundNo Family History Records Found Advance Directives No Advanced Directives Records FoundNo Advanced Directives Records FoundNo Advanced Directives Records FoundNo Advanced Directives Records FoundNo Advanced Directives Records FoundNo Advanced Directives Records FoundNo Advanced Directives Records FoundNo Advanced Directives Records FoundNo Advanced Directives Records FoundNo Advanced Directives Records FoundNo Advanced Directives Records Found Chief Complaint and Reason for Visit Chief Complaint WEDGE COMPRESSION FX OF T5-T6 AND T6-T7 VERTEBRA Chief Complaint Admit Date ELEVATED PSA November 19, 2024 2:46 pm Additional Source Comments (unrecognized sect ion and content) No Status Records FoundNo Status Records FoundNo Status Records FoundNo Status Records FoundNo Status Records FoundNo Status Records FoundNo Status Records FoundNo Status Records FoundNo Status Records FoundNo Status Records FoundNo Status Records Found INFORMATION SOURCE (unrecogn ized section and content) DATE CREATED AUTHOR 10/25/2017 [facility] DATE CREATED AUTHOR AUTHOR'S ORGANIZ ATION 10/18/2020 [facility] DATE CREATED AUTHOR AUTHOR'S ORGANIZ ATION 01/30/2021 [facility] DATE CREATED AUTHOR AUTHOR'S ORGANIZ ATION 11/15/2021 [facility] DATE CREATED AUTHOR AUTHOR'S ORGANIZ ATION 02/02/2022 [facility] DATE CREATED AUTHOR AUTHOR'S ORGANIZ ATION 07/14/2023 [facility] DATE CREATED AUTHOR AUTHOR'S ORGANIZ ATION 09/21/2023 [facility] DATE CREATED AUTHOR AUTHOR'S ORGANIZ ATION 10/17/2023 [facility] DATE CREATED AUTHOR AUTHOR'S ORGANIZ ATION 10/21/2024 [facility] DATE CREATED AUTHOR AUTHOR'S ORGANIZ ATION 10/22/2024 [facility] DATE CREATED AUTHOR AUTHOR'S ORGANIZ ATION 03/16/2025 [facility] Care Teams (unrecognized sec tion and content) Team Status: Active Member Role Status Dates Dr. Dioni Pascual MD Family Provider Active Dr. Dioni Pascual MD Primary Care Provider Active Team Status: Inactive Member Role Status Dates Dr. Dioni Pascual MD Primary Care Provider Active Dr. Marko Garcia DO Attending Provider, Referring P rovider Active Team Status: Inactive Member Role Status Dates Dr. Dioni Pascual MD Primary Care Prov ider, Attending Provider, Referring Provider Active Team Status: Active Member Role/Relationship Status Dates Dr. Dioni Pascual MD Primary Care Provider Active Team Status: Inactive Member Role/Relationship Status Dates Dr. Dioni Pascual MD Primary Care Provider Active Start: November 19, 2024 End: November 19, 2024 Dr. Gilles Johnston MD Attending Provider Active Start: November 19, 2024 End: November 19, 2024 Dr. Gilles Johnston MD Referring Provider Active Start: November 19, 2024 End: November 19, 2024 Team Status: Inactive Member Role/Relationship Status Dates Dr. Dioni Pascual MD Primary Care Provider Active Start: December 17, 2024 End: December 17, 2024 Dr. Gilles Johnston MD Attending Provider Active Start: December 17, 2024 End: December 17, 2024 Dr. Gilles Johnston MD Referring Provider Active Start: December 17, 2024 End: December 17, 2024 Goals (unrecognized section and content) Goals may be documented in a n alternate sectionGoals may be documented in an alternate sectionGoals may be documented in an alternate section FOR RECORDS PERTAINING TO PATIENTS WHO ARE OR HAVE BEEN ENROLLED IN A CHEMICAL DEPENDENCY/SUBSTANCEABUSE PROGRAM, SOME INFORMATION MAY BE OMITTED. This clinical summary was aggregated from multiple sources. Caution should be exercised in using it in the provision of clinical care. This summary normalizes information from multiple sources, and as a consequence, information in this document may materially change the coding, format and clinical context of patient data. In addition, data may be omitted in some cases. CLINICAL DECISIONS SHOULD BE BASED ON THE PRIMARY CLINICAL RECORDS. [facility] [employer] provides no warranty or guarantee of the accuracy or completeness of information in this document.
== END | disposition home or self-care (01) ==
LOC: MRI 07:00
PROVIDERS: PCP Internal Medicine; Referring Provider Student in an Organized Health Care Education/Training Program; Visit Provider Student in an Organized Health Care Education/Training Program
DX: M54.6 Pain in thoracic spine (principal); Z98.890 Other specified postprocedural states
CPT/HCPCS: 72146